=== PATIENT | female | born 1945 | race Caucasian/White ===

== ENCOUNTER 2020-01-08 09:34 | Observation (INO) | payer MEDICARE, SELFPAY ==
[2020-01-08] VITALS (18 sets, daily range): BP systolic 138–198; BP diastolic 71–104; PULSE 42–74; RESP 11–28; TEMP 35.8–36.6; O2SAT 97–100; BMI 39.3; BMI 40.6
--- NOTE | 2020-01-08 | ECHO_ITS ---
Patient Info Name: Hue Raygoza Age: 74 years : 1945 Gender: Female Ht: 68 in Wt: 258 lbs BSA: 2.42 m2 HR: 54 bpm BP: 148 / 71 mmHg Heart Rhythm: Sinus Rhythm Technical Quality: Poor Exam Date: 01/08/2020 2:24 PM Exam Location: [facility] Patient Status: Outpatient Admit Date: 01/08/2020 Staff Ordering Physician: Sam Duque MD Varnishing Unit Operator: Cira Miller RD Attending Provider: Caitlyn Vinson MD Referring Physician: Dunia LINDSEY; Exam Type: CA echo doppler w bubble study Study Info Complete two-dimensional, color flow and Doppler transthoracic echocardiogram is performed with contrast to opacify the left ventricle and to improve the deliniation of the left ventricle endocardial borders. Complete two-dimensional, color flow and Doppler transthoracic echocardiogram is performed with agitated saline. Contrast/Agitated Saline Contrast/Ag. Saline: Definity Amount: 3.00 ml Contrast/Ag. Saline: Agitated Saline Amount: --- ml Summary 1. Left ventricular chamber dimension is normal. 2. Left ventricular systolic function is normal, estimated at 60-65%. 3. There is moderately increased left ventricular wall thickness. 4. The left ventricular diastolic function is grade I diastolic dysfunction. 5. Left atrial chamber dimension is mildly enlarged. 6. There is mild tricuspid valve regurgitation. 7. There is mild mitral valve regurgitation. 8. The aortic root size at the sinus of Valsalva is mildly dilated. 9. Intact interatrial septum visualized by color flow and agitated saline imaging. Left Ventricle Left ventricular chamber dimension is normal. Left ventricular systolic function is normal, estimated at 60-65%. There is moderately increased left ventricular wall thickness. The left ventricular diastolic function is grade I diastolic dysfunction. Right Ventricle Right ventricular chamber dimension is normal. Right ventricular systolic function is normal. Left Atria Left atrial chamber dimension is mildly enlarged. Right Atria Right atrial chamber dimension is normal. Atrial Septum Intact interatrial septum visualized by color flow and agitated saline imaging. Aortic Valve The aortic valve is trileaflet. There is mild aortic valve sclerosis. There is no aortic valve stenosis. There is trace aortic valve regurgitation. Pulmonic Valve The pulmonic valve is normal. There is no pulmonic valve stenosis. There is trace pulmonic regurgitation. Mitral Valve The mitral valve has calcified annulus. There is no mitral valve stenosis. There is mild mitral valve regurgitation. Tricuspid Valve The tricuspid valve leaflets are normal. There is no significant tricuspid valve stenosis. There is mild tricuspid valve regurgitation. No pulmonary hypertension, estimated pulmonary arterial systolic pressure is 13 mmHg. Pericardium/Pleural The pericardium appears normal. There is no pericardial effusion. Inferior Vena Cava Normal inferior vena cava with >50% collapse upon inspiration consistent with normal right atrial pressure, 5 mmHg. Aorta The aortic root size at the sinus of Valsalva is mildly dilated. The prox ascending aorta size is normal. Left Ventricular Outflow Tract Name Value Normal
--- NOTE | ~2020-01-08 | US_ITS ---
EXAMINATION: US carotid duplex BI DATE: 01/08/2020 15:52 INDICATION: Headache. Numbness and tingling in the face and hands. Dizziness. TECHNIQUE: Grayscale, color Doppler, and pulsed Doppler images of the cervical carotid arteries were obtained. The degree of vessel stenosis is placed in one of the following categories: normal, <50%, 5 0-69%, >=70% but less than near-occlusion, near-occlusion, or total occlusion. Note that percent sten osis relative to normal distal artery lumen diameter is indirectly measured from velocity measurement s as described by Saeid, et al. Radiology 2003; 229:340-346. Notes: Normal: Peak systolic velocity <125 centimeters/sec and no plaque <50%. Peak systolic velocity <125 ( EDV <40; ICA/CCA PSV ratio <2.0; used these factors only a tandem lesions or low cardiac output or co ntralateral disease) 50-69 %: PSV 125-230 (EDV 40-100; ratio 2-4) >= 70% but less than near occlusion: PSV greater than 230 (EDV > 100; ratio> 4.0) Near Occlusion: PSV that is variable; markedly narrowed lumen Occlusion: Absent flow on color/spectral Doppler and no lumen on fagan scale. COMPARISON: CT dated 01/08/2020. FINDINGS: RIGHT: The right common carotid artery (CCA) peak systolic velocity (PSV) is 69 cm/s. The right internal car otid artery (ICA) PSV is 53 cm/s. The right ICA end-diastolic velocity (EDV) is 16 cm/s. The right IC A/CCA PSV ratio is 0.8. The external carotid artery (ECA) PSV is 65 cm/s. There is antegrade flow in the right vertebral artery. LEFT: The left CCA PSV is 63 cm/s. The left ICA PSV is 46 cm/s. The left ICA EDV is 12 cm/s. The left ICA/C CA PSV ratio is 0.7. The ECA PSV is 51 cm/s. There is antegrade flow in the left vertebral artery. IMPRESSION: 1. Less than 50% stenosis in the right internal carotid artery by sonographic criteria. 2. Less than 50% stenosis in the left internal carotid artery by sonographic criteria. Reviewed, dictated and finalized at location A. IMPRESSION: 1. Less than 50% stenosis in the right internal carotid artery by sonographic kaylene frost. 2. Less than 50% stenosis in the left internal carotid artery by sonographic mis salcedo.
--- NOTE | ~2020-01-08 | CT_ITS ---
EXAMINATION: CT brain wo con EXAM DATE: 01/08/2020 10:12 INDICATION: Headache, paresthesia in the upper extremities. TECHNIQUE: Spiral CT of the head was performed without contrast. Axial, coronal and sagittal images were reviewed. The dose-length product (DLP) for this examination was 605.33 mGy-cm. The exposure w as tailored according to patient size, and iterative reconstruction (ASIR) was used as additional dos e reduction technique. There is no prior study for comparison. FINDINGS: There is no acute intraparenchymal hemorrhage. No evidence of intraparenchymal brain mass lesion. No evidence of acute infarction. Please note that initial head CT has limited sensitivity f or small or acute infarctions. There is hyperostosis frontalis. There is mild periventricular and s ubcortical hypodensity, nonspecific but probably related to small vessel ischemic disease. There is mild prominence of the sulci and ventricles related to cerebral atrophy. There is intracranial car otid arteriosclerosis. There are no extra-axial collections. There is no mass effect or midline mallika ft. The orbits are unremarkable. Soft tissue is unremarkable. The visualized sinuses and mastoid a ir cells are well aerated. IMPRESSION: 1. No acute intracranial findings. 2. Chronic age related findings. Reviewed, dictated and finalized at location A.
--- NOTE | ~2020-01-08 | MR_ITS ---
EXAMINATION: MR brain/brain stem wo/w con EXAM DATE: 01/09/2020 12:01 INDICATION: Left-sided paresthesia, headache. TECHNIQUE: Magnetic resonance imaging (MRI) of the brain/brain stem obtained without contrast. Sagit emir T1, axial diffusion, gradient echo (T2*), T1, T2, FLAIR sequences obtained. Patient was then inj ected with a cc intravenous Multihance contrast. Axial and coronal postcontrast T1 weighted sequences obtained. Correlation is made to head CT from yesterday. FINDINGS: There are no areas of restricted diffusion to suggest acute infarction. There is no acute hemorrhage seen on the T2*, a hemosiderin sensitive sequence. No intraparenchymal brain mass. The ve ntricles are normal in size. There are no extra-axial collections. Flow voids are seen in the cereb ral arteries on the T2-weighted sequences consistent with their expected patency. The orbits are unr emarkable. Soft tissue is unremarkable. There are no areas of abnormal enhancement on the postcont rast images. IMPRESSION: 1. Normal brain MRI examination. Reviewed, dictated and finalized at location A.
--- NOTE | 2020-01-08 09:42 | ECG_ITS ---
Measurements Intervals [place] Rate: 49 P: 40 MT: 230 QRS: -25 QRSD: 112 T: 13 QT: 446 QTc: 405 Interpretive Statements SINUS BRADYCARDIA WITH FIRST DEGREE AV BLOCK INTRAVENTRICULAR CONDUCTION DELAY LOW QRS VOLTAGE IN PRECORDIAL LEADS POOR R WAVE PROGRESSION, ANTERIOR LEADS BORDERLINE ST-T WAVE ABNORMALITY- DIFFUSE LEADS ABNORMAL ECG Electronically Signed On 01-08-2020 11:26:07 CDT by Jordan Carter D.O.
--- NOTE | 2020-01-08 09:44 | ED.NEUROSD ---
HPI - Neuro Symptoms/Deficit General Chief Complaint: Neuro Symptoms/Deficit Stated Complaint: stroke like symptoms Time Seen by Provider: 01/08/20 09:34 History of Present Illness HPI Narrative: 74 yo female w/ h/o HTN presents from home for numbness and tingling. She reports that around 0200 this morning she awoke with tingling and pain to the bilateral arms and a severe SIBLEY. The headache and the sensation in the right arm resolved. SHe continued having numbness and tingling in the left arm and left side of the face. She believes that this is improving. Related Data Home Medications Medication Instructions Recorded Confirmed amlodipine 01/08/20 aspirin 81 mg PO DAILY 01/08/20 01/08/20 atenolol 01/08/20 ezetimibe mg 01/08/20 triamterene-hydrochlorothiazid tablet 01/08/20 Allergies Allergy/AdvReac Type Severity Reaction Status Date / Time latex Allergy Severe Swelling Verified 01/08/20 09:53 ATORVASTATIN CALCIUM Allergy Unknown Other Uncoded 01/08/20 09:53 Review of Systems Review of Systems: All systems reviewed & are unremarkable except as noted in HPI and below Constitutional: Constitutional: Denies fever(s) and Denies weakness ENT: Reports dizziness Cardiovascular: Cardiovascular: Denies chest pain Respiratory: Respiratory: Denies dyspnea Musculoskeletal: Musculoskeletal: Denies back pain Neurologic: Reports dizziness, Denies syncope, Reports headache(s), Reports numbness and Denies weakness FOR[facility]LY [facility] Past Medical History Medical History CAD (coronary artery disease) medically treated . Myocardial infarction 1986. No intervention was performed. History of poliomyelitis she stated she had a mild case as a child and uses a walker. HTN (hypertension), malignant Hyperlipidemia Surgical History Surgical History H/O oral surgery History of cardiac catheterization 1986 after myocardial infarction. No angioplasty or stent as the vessel was reported as hard to read. History of extraction of renal calculus History of partial hysterectomy History of removal of pigmented skin lesion Family History Family History Mother Thyroid disease when she was 97. Father Valvular heart disease Sibling Valvular heart disease 2 brothers Social History Social History Social History: the patient resides with her in [place]. He is the durable power attorney recruiter for healthcare. She desires to be a full code. 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 She never smoked used marijuana, tobacco or drug abuse. She has 3 children. Smoking status: Never smoker Second hand tobacco smoke exposure: No Alcohol intake: never Substance use: never Living arrangements: with family Occupation/Education: retired Gender identity (if verbalized by the patient): Female Sexual Orientation (if Verbalized by the Patient): Straight or Heterosexual Spiritual care concerns: No Exam Const: General: healthy appearing, no acute distress and alert Orientation/consciousness: patient oriented x3 HENMT: Mouth: Yes dry mucous membranes Eyes: Conjunctivae: conjunctivae normal Pupils: Equal, round and reactive pupils present EOM: EOMs intact bilaterally Neck: Neck: normal visual inspection and no lymphadenopathy Chest: Chest palpation & inspection: no tenderness Resp: Effort & Inspection: normal respiratory effort Auscultation: clear to auscultation bilaterally, no rales, no rhonchi and no wheezes Cardio: Jugular venous distension: no JVD Rate: bradycardic Rhythm: regular rhythm Heart sounds: no murmurs GI: Inspection: non-distended GI Palp: Yes Soft to palpation and No Tenderness to palp
[2020-01-08] MEDS: SODIUM CHLORIDE 0.9% IV 1,000 ML 999 ML IV CONT (10:00)
[2020-01-08 10:50] LABS: Basophils Percent Auto 1.1 % (0.2-1.2); Eosinophils Percent Auto 1.1 % (0-4.4); Hematocrit 42.3 % (37.0-47.0); Hemoglobin 13.5 g/dL (12.0-15.0); Immature Granulocyte Absolute 0.02 K/mm3 (0.00-0.031); Immature Granulocyte Percent A 0.6 % (0-0.5); Lymphocytes Absolute Auto 1.01 K/mm3 (0.9-3.2); Lymphocytes Percent Auto 28.9 % (18.3-44.2); Mean Corpuscular HGB Conc 31.9 g/dl (32-36); Mean Corpuscular Hemoglobin 27.8 pg (26-34); Mean Corpuscular Volume 87.2 fl (80-100); Mean Platelet Volume 12.6 fl (7.4-10.4); Monocytes Absolute Auto 0.3 K/mm3 (0.1-0.6); Monocytes Percent Auto 8.3 % (2.6-8.5); Neutrophils Absolute Auto 2.1 K/mm3 (1.3-6.7); Platelet Count Result 154 k/mm3 (150-375); Red Blood Count 4.85 M/mm3 (4.2-5.4); Red Cell Distribution Width 14.2 % (11.5-14.5); White Blood Count 3.5 K/mm3 (4.5-10.0)
[2020-01-08 10:59] LABS: Prothrombin Time 12.8 Seconds (11.1-14.7)
[2020-01-08 11:00] LABS: Alanine Aminotransferase 23 U/L (4-35); Albumin Level 3.9 g/dL (3.5-5.1); Alkaline Phosphatase 63 U/L (38-126); Anion Gap 8.9 mmol/L (7-16); Aspartate Amino Transferase 26 U/L (14-36); Blood Urea Nitrogen 16 mg/dL (7-17); Calcium 8.9 mg/dL (8.4-10.2); Carbon Dioxide 27 mmol/L (22-30); Chloride 108 mmol/L (98-107); Estimated CRCL calculation 91 ml/min; Estimated Glomerular Filt Rate > 60; Glucose 105 mg/dL (65-105); Partial Thromboplastin Time 29.6 SECONDS (22.3-36.8); Potassium 3.9 mmol/L (3.4-5.0); Sodium 140 mmol/L (137-145)
--- NOTE | 2020-01-08 11:28 | PC.NURSE ---
Note pt's heart rate in 40-50's range, appears sinus bradycardia. Pt reports she normally has a low heart rate. c/o dizziness when heartrate lowers. Commode brought to room for clean catch urine collection. Pt up around room without difficulty.
[2020-01-08] MEDS: hydrALAZINE HCL 20 MG/ML VIAL IV PUSH (11:35)
[2020-01-08 11:58] LABS: Add Urine Microscopic? NO; Appearance Urine Clear (Clear); Bilirubin Urine Negative (Negative); Blood Urine Negative (Negative); Color Urine Colorless (Yellow); Glucose Urine UA Negative (Negative); Ketones Urine Negative (Negative); Leukocyte Esterase Ur Negative LEU/UL (Negative); Nitrate Urine Negative (Negative); Protein Urine Negative (Negative); Urobilinogen Urine Negative mg/dL (<2.0)
--- NOTE | 2020-01-08 12:37 | PC.NURSE ---
Pt reports that when getting up to the commode earlier she became dizzy, and her tingling worsened in her arms and face. VSS taken, pt assisted back to bed. Dr. Arias made aware.
--- NOTE | 2020-01-08 13:20 | PC.NURSE ---
SBAR tubed and faxed to [address] [place] [address].
[2020-01-08] MEDS: LACTATED RINGERS 1,000 ML 125 ML IV CONT (13:25)
--- NOTE | 2020-01-08 14:49 | PM.IMHP ---
H&P: HPI History of Present Illness Date/Time: 01/08/20 14:49 Chief complaint: Symptomatic Braycardia Narrative: Hue Raygoza is a 74 year old female Who has a history of have being coronary artery disease but was not able to have a stent placed due to the position of the blockage. The patient does not have any chest pain today but was complaining of some numbness and tingling. She stated that at this started around 2:00 a.m. this morning. She has fair headache and she had some numbness and tingling to her face and her hands. Resolved somewhat when she got here but then it came back and was radiating down her arm and she also felt some dizziness. No fever chills but had some complaint of nausea. The patient stated that she has mental fogginess due to the headache. She typically takes an aspirin and that helps with the headache. She used to take Excedrin but that does not seem to help her. She walks with a walker since she has had a history of having a mild case of polio as a child. Her head CT was read as no acute intracranial findings. Chronic age-related findings. Patient stated she has been on her blood pressure medication for many years but now her heart rate is in the 30s and 40s. I did request a cardiology be consulted. The patient does not see a celery packer here but rather [address] [place] [address] De Santiago. She stated she is intolerant of a statin it makes her too weak. She had numbness and tingling to left side her face and left arm that resolved then it went down the right arm. She is currently receiving an echo. Patient's blood pressure was last listed as 161/104. None of her home medications were given because of patient's low heart rate. His felt the patient could have symptomatic bradycardia versus TIA versus a CVA. the patient was given Ativan, hydralazine and IV fluids in the emergency room. I have spent at least 1 hour the patient date of service is 01/08/2020 Review of Systems Review of Systems: All systems reviewed & are unremarkable except as noted in HPI and below Constitutional: Constitutional: Reports as per HPI and Reports no additional constitutional complaints Eyes: Eyes: Reports as per HPI and Reports no additional eye complaints ENT: Reports system reviewed and no additional complaints, except as documented and Reports Normal hearing present Cardiovascular: Cardiovascular: Reports no additional cardiovascular complaints Respiratory: Respiratory: Reports no additional respiratory complaints and Reports no additional respiratory complaints Gastrointestinal: Gastrointestinal: Reports as per HPI and Reports no additional gastrointestinal complaints Musculoskeletal: Musculoskeletal: Reports no additional musculoskeletal complaints Integumentary/Breasts: Skin/Breast: Reports system reviewed and no additional complaints, except as docu and Reports as per HPI Neurologic: Reports system reviewed and no additional complaints, except as documented, Reports as per HPI and Reports Normal hearing present Psychiatric: Psychiatric: Reports no additional psychiatric complaints and Reports as per HPI Endocrine: Endocrine: Reports no additional endocrine complaints Hematologic/Lymphatic: Hematologic/Lymphatic: Reports no additional hematologic/lymphatic complaints Allergic/Immunologic: Allergic/Immunologic: Reports no additional allergic/immunologic complaints PMFSH Past Medical History Medical History (Updated 01/08/20 @ 15:05 by Sammie Boswell NP) CAD (coronary artery disease) medically treated . Myocardial infarction 1986. No intervention was performed. History of poliomyelitis she stated she had a mild case as a child and uses a walker. HTN (hypertension), malignant Hyperlipidemia Surgical History Surgical History (Updated 01/08/20 @ 14:58 by Sammie Boswell NP) H/O oral surgery History of cardiac catheterization 1986 after myocardial infarction. No angioplasty or stent as the vessel was reporte
--- NOTE | 2020-01-08 16:02 | ADMGEN ---
This patient, Hue Raygoza, was admitted to Medical Room 252-01. Patient/family oriented to hospital policies and general routines including ID bracelet, bed and alarms, visiting hours, pain management, procedures, bathroom and other care routines, personal items, smoking policy, room service/diet, and visiting hours. Valuables list has been completed. Instructed to call for assistance as needed call light in reach. Information on how to activate the Rapid Response Team has been discussed. Patient/Family are encouraged to report perceived risks to care and to ask questions if they do not understand what they are told or what they should do.
[2020-01-08] MEDS: KETOROLAC 15 MG/ML VIAL (*BKC) IV PUSH (17:18)
[2020-01-09] VITALS (10 sets, daily range): BP systolic 127–141; BP diastolic 54–85; PULSE 48–100; RESP 18–20; TEMP 35.9–36.1; O2SAT 98
[2020-01-09] MEDS: EZETIMIBE 10 MG TABLET BY MOUTH (08:40)
[2020-01-09] MEDS: ASPIRIN 81 MG CHEWABLE TABLET PO (08:40)
--- NOTE | 2020-01-09 09:25 | PM.CNCAR ---
Assessment and Plan Assessment and plan (1) CAD (coronary artery disease): Code(s): I25.10 - Atherosclerotic heart disease of [place] coronary artery without angina pectoris Status: Acute Assessment and Plan: Continue aspirin, Zetia. (2) Symptomatic bradycardia: Code(s): R00.1 - Bradycardia, unspecified Status: Acute Assessment and Plan: patient does not have symptomatic bradycardia. I talked to her extensively and she states that she often has heart rates in the 50s and whenever she was in rehab down stairs, her heart rate was frequently in the 40s. Her current symptomatology has nothing to do with her mild bradycardia. I a.m. however going to stop her atenolol completely. Will monitor heart rate and likely start some carvedilol if needed rather than atenolol. I will check a TSH and a free T4 level. 2D echocardiogram with Doppler as well as bubble study will also be ordered. (3) HTN (hypertension), malignant: Code(s): I10 - Essential (primary) hypertension Status: Chronic Assessment and Plan: heart transplant/ hydrochlorothiazide should be restarted and I will start her back on her amlodipine but increase the dose to 10 mg daily. First dose now. (4) Numbness and tingling in left arm: Code(s): R20.0 - Anesthesia of skin; R20.2 - Paresthesia of skin Status: Acute Assessment and Plan: Workup per Neurology. . Will check a troponin x1 (5) Headache: Code(s): R51 - Headache Status: Acute Assessment and Plan: Neurology to see. Possibly related to hypertension (6) Hyperlipidemia: Code(s): E78.5 - Hyperlipidemia, unspecified Status: Chronic Assessment and Plan: intolerant to statins. On Zetia for now. will check a lipid panel History of Present Illness History of Present Illness Consult date/time: 01/09/20 09:25 Requesting physician: Saeid Arias MD Consult reason: hypertension and Other (Bradycardia) Reason For Visit: Symptomatic Braycardia Narrative: date of service 01/09/2020 Reason for consultation: Bradycardia, hypertension History patient is a 74-year-old female who does have a history of coronary disease and follows with Dr. De Santiago. She has a history of CAD dating back to the 1980s. She came to the hospital because headache, tingling in her arms, numbness in her arms and weakness. Patient was in her usual state health but woke up at 2:00 a.m. on the morning of January 08, 2020 with a headache and a feeling as if there were electrical impulses all over her. She was very sweaty at the time. She then developed some numbness weakness and tingling in both of her arms. Blood pressure was elevated upon arrival to the emergency room. It was also noted that she has a slow heartbeat and so Cardiology consultation was requested. Patient denies any chest pain. She denies any syncope, presyncope, paroxysmal nocturnal dyspnea, orthopnea, edema or palpitations. She did have some heavy breathing at the time of her other symptoms. At this point she still is having a headache and some numbness /tingling involving her left arm. Her atenolol amlodipine and of triamterene/hydrochlorothiazide were held. EKG shows no acute abnormalities. Review of Systems Review of Systems: All systems reviewed & are unremarkable except as noted in HPI and below Constitutional: Constitutional: Reports weakness Eyes: Eyes: Denies blurry vision ENT: Reports Normal hearing present Cardiovascular: Cardiovascular: Denies chest pain Respiratory: Respiratory: Denies cough Gastrointestinal: Gastrointestinal: Denies abdominal pain Genitourinary: Genitourinary: Denies hematuria and Denies flank pain Musculoskeletal: Musculoskeletal: Denies back pain and Denies neck pain Integumentary/Breasts: Skin/Breast: Denies dry skin Neurologic: Reports headache(s) Psychiatric: Psychiatric: Denies anxiety and Denies confusion
[2020-01-09 10:25] LABS: Cholesterol 158 mg/dL (0-200); HDL Direct 59 mg/dL; Triglycerides 252 mg/dL (<150)
[2020-01-09 10:36] LABS: LDL Cholesterol Direct 37 mg/dL
[2020-01-09] MEDS: TRIAMTERENE 37.5 MG/HCTZ 25 MG (MAXZIDE) TABLET 1 TAB PO (10:47)
[2020-01-09] MEDS: amLODIPine BESYLATE 5 MG TABLET 10 MG PO (10:48)
[2020-01-09 11:15] LABS: T4 Thyroxine 6.71 ug/dL (5.53-11.0)
--- NOTE | 2020-01-09 13:01 | PM.IMPN ---
Progress Note: A&P Assessment and Plan (1) Numbness and tingling in left arm: Code(s): R20.0 - Anesthesia of skin; R20.2 - Paresthesia of skin Status: Acute Assessment and Plan: Patient describes mild intermittent parasthesia to left arm chronically over last 5 years after an injury and surgery to left arm. She awoke 2AM 8/ with worse numbness and tingling to both arms, reporting they felt heavy and she had difficulty lifting them, along with numbness/tingling to face (worse on left) and tongue. CT brain is normal. Carotid dopplers normal. MRI brain is normal. Etiology is unclear at this time. May have been worsened with elevated blood pressures. Appreciate neurology recommendations. (2) Headache: Qualifiers: Headache type: unspecified Headache chronicity pattern: unspecified pattern Intractability: not intractable Qualified Code(s): R51 - Headache Code(s): R51 - Headache Status: Acute Assessment and Plan: She reports Tylenol does not help. Toradol is available if needed. She reports headache is improved today. (3) HTN (hypertension), malignant: Code(s): I10 - Essential (primary) hypertension Status: Chronic Assessment and Plan: BPs elevated to 198/79 yesterday and are improved today. Cardiology was consulted due to bradycardia - appreciate Dr Duque recommendations today. He has resumed her home medications, increased her norvasc, resumed her Maxzide, stopped atenolol. (4) Bradycardia: Code(s): R00.1 - Bradycardia, unspecified Status: Chronic Assessment and Plan: She described this is chronic for her. Tele review shows some bradycardia overnight and this morning as low as 38bpm, at time of my exam she is sinus rhythm HR 64. Appreciate cardiology's recommendations. Agree I don't feel this is causing her paresthesias. (5) Hyperlipidemia: Qualifiers: Hyperlipidemia type: unspecified Qualified Code(s): E78.5 - Hyperlipidemia, unspecified Code(s): E78.5 - Hyperlipidemia, unspecified Status: Chronic Assessment and Plan: Patient is intolerant of statins and is on Zetia. Subjective Date/time seen: 01/09/20 1200 Interval history: Ms. Raygoza is a 74yo F admitted for evaluation of parasthesia. She describes numbness and tingling to arms (worse in left today), face and tongue. She has a headache. She describes 5 years ago had an injury with dislocated left shoulder and a left arm fracture that required surgery. She reports she has had mild intermittent left arm numbness and tingling since that time, but she awoke 2AM with sudden worsening of this N/T when at that time included her face, tongue, right and left arms. Overall her numbness and tingling has improved, still present in her left arm and face. No issues with speech or swallowing today. No issues with lower extremities. No nausea or vomiting. No chest pain, syncope, palpitations, or shortness of breath. Review of Systems Review of Systems: Narrative: Twelve systems were reviewed with pertinent positives and negatives as per HPI. Exam Narrative: Exam Narrative: General: Female resting comfortably in semi-schrader's position in no acute distress. HEENT: Normocephalic, EOMI, pupils constricted but round and reactive to light SHERON, tongue is midline. Cardiovascular: Rate and rhythm are regular. Respiratory: Lungs clear to auscultation all berry. Non-labored breathing. Abdomen: Soft, non-tender, non-distended, bowel sounds present. Extremities: Peripheral pulses intact. No edema. Neuro: Alert and oriented. No facial asymmetry appreciated. Precinct Captain strength, upper and lower extremity strength are equal bilaterally. Cranial nerves II-XII intact as tested. Speech is clear. Objective Data Vital Signs Vital Signs:
--- NOTE | 2020-01-09 16:33 | CONS_ITS ---
DATE OF CONSULTATION: 01/08/2020 HISTORY OF PRESENT ILLNESS: A 74-year-old has been admitted to [facility] for the complaint of symptomatic bradycardia. As per the information available, she has ongoing history of: 1. Coronary artery disease for which she has not had stent placed due to the position of the blockage. 2. Hypertension. 3. Hyperlipidemia. 4. History of poliomyelitis as a mild case, as a child for which she has been using the walker. She was not complaining of chest pain, but was complaining of numbness and tingling sensation around 02:00 a.m. in the morning along with the headache and numbness, and tingling to her face, which was gone by the time she came to the ER, but it came back with numbness radiating down to her arm and also she felt dizzy. She usually takes aspirin that helps her headache, but this time it did not. She has been taking her antihypertensive medication, but her heart rate has been running in 30s and 40s for which the analog device designer had been consulted. As per the review of Dr. Duque's notes, her atenolol, amlodipine and triamterene-hydrochlorothiazide were held. EKG was without any abnormalities and her cardiac exam was with bradycardia, but regular rhythm. Further cardiac workup is accordingly. PHYSICAL EXAMINATION: GENERAL: At this stage, on examination, she is awake, alert, in no obvious acute distress, oriented x3. Her speech not dysphasic, not dysarthric, not dysphonic. HEENT: Head normocephalic with no cranial bruit. Ear, nose, throat examination normal. NECK: Supple with no cervical bruit. No thyromegaly. No lymphadenopathy. HEART: Regular with no murmur. LUNGS: Clear with no crepitation. ABDOMEN: Soft. NEUROLOGICAL: She is awake, alert, oriented x3. Her speech not dysphasic, not dysarthric. Pupils round, regular. Mckee of vision full. Extraocular movements full. Face symmetrical. Tongue midline. Motor examination revealed her to have fairly normal strength. Reflexes sluggish. Plantar downgoing. No evidence of gross cerebellar deficit. Plan is considering the possibility of the TIA. Further workup is necessary. She is going to have the MRI and Doppler study, which has already been done, reveals only less than 50% stenosis bilaterally. Cardiology consultation has been obtained. We will wait for the MRI report. In the meantime, She is taking aspirin 81 mg daily along with the amlodipine 10 mg daily with triamterene-hydrochlorothiazide 25 one tablet daily. MANI HERNANDEZ M.D. BRICK UNLOADER TENDER BRICK UNLOADER TENDER D I MT: [place]
[2020-01-10] VITALS: PULSE 48
[2020-01-10 04:00] VITALS: PULSE 42
[2020-01-10 05:32] LABS: Basophils Percent Auto 0.7 % (0.2-1.2); Eosinophils Absolute Auto 0.1 K/mm3 (0-0.3); Eosinophils Percent Auto 2.4 % (0-4.4); Hematocrit 41.2 % (37.0-47.0); Immature Granulocyte Absolute 0.01 K/mm3 (0.00-0.031); Immature Granulocyte Percent A 0.2 % (0-0.5); Lymphocytes Absolute Auto 1.32 K/mm3 (0.9-3.2); Lymphocytes Percent Auto 32.2 % (18.3-44.2); Mean Corpuscular HGB Conc 31.6 g/dl (32-36); Mean Corpuscular Hemoglobin 27.5 pg (26-34); Mean Corpuscular Volume 87.1 fl (80-100); Mean Platelet Volume 12.4 fl (7.4-10.4); Monocytes Absolute Auto 0.5 K/mm3 (0.1-0.6); Neutrophils Absolute Auto 2.2 K/mm3 (1.3-6.7); Neutrophils Percent Auto 53.5 % (45.5-73.1); Platelet Count Result 170 k/mm3 (150-375); Red Blood Count 4.73 M/mm3 (4.2-5.4); Red Cell Distribution Width 14.3 % (11.5-14.5); White Blood Count 4.1 K/mm3 (4.5-10.0)
[2020-01-10 05:48] LABS: Blood Urea Nitrogen 11 mg/dL (7-17); Calcium 8.7 mg/dL (8.4-10.2); Carbon Dioxide 24 mmol/L (22-30); Chloride 108 mmol/L (98-107); Estimated CRCL calculation 81 ml/min; Estimated Glomerular Filt Rate > 60; Glucose 96 mg/dL (65-105); Magnesium 2.1 mg/dL (1.6-2.3); Sodium 137 mmol/L (137-145)
[2020-01-10 06:00] VITALS: BP 149/75; PULSE 57; RESP 18; TEMP 36.4; O2SAT 99
[2020-01-10 06:57] LABS: Folic Acid > 20.0 ng/mL (2.76->20)
[2020-01-10 07:16] LABS: Vitamin D 25 Hydroxy 32.3 ng/mL
[2020-01-10 08:00] VITALS: PULSE 61
[2020-01-10] MEDS: EZETIMIBE 10 MG TABLET BY MOUTH (08:10)
[2020-01-10] MEDS: TRIAMTERENE 37.5 MG/HCTZ 25 MG (MAXZIDE) TABLET 1 TAB PO (08:10)
[2020-01-10] MEDS: amLODIPine BESYLATE 5 MG TABLET 10 MG PO (08:11)
[2020-01-10] MEDS: ASPIRIN 81 MG CHEWABLE TABLET PO (08:11)
--- NOTE | 2020-01-10 08:56 | PM.PNCARD ---
Progress Note: A&P Assessment and Plan (1) Symptomatic bradycardia: Code(s): R00.1 - Bradycardia, unspecified Status: Inactive Assessment and Plan: She does not have symptomatic bradycardia. Her current symptomatology has nothing to do with her mild bradycardia. Atenolol stopped. Heart rates generally in the 50's with appropriate excursions into the 70s with activity. No pauses. Rare PVC TSH and a free T4 within normal limits 2D echocardiogram with Doppler01/08/2020: Left ventricular chamber dimension is normal. Left ventricular systolic function is normal, estimated at 60-65%. There is moderately increased left ventricular wall thickness. The left ventricular diastolic function is grade I diastolic dysfunction. Left atrial chamber dimension is mildly enlarged. There is mild tricuspid valve regurgitation. There is mild mitral valve regurgitation. The aortic root size at the sinus of Valsalva is mildly dilated. Intact interatrial septum visualized by color flow and agitated saline imaging. (2) HTN (hypertension), malignant: Code(s): I10 - Essential (primary) hypertension Status: Chronic Assessment and Plan: Triamterene/ hydrochlorothiazide restarted. Amlodipine 10 mg daily. BP after meds 01/09/2020: 132/79 [id number]. BP this morning prior to meds 149/75 No further adjustments needed at this time (3) CAD (coronary artery disease): Qualifiers: Coronary Disease-Associated Artery/Lesion type: [place] artery [place] vs. transplanted heart: [place] heart Associated angina: without angina Qualified Code(s): I25.10 - Atherosclerotic heart disease of [place] coronary artery without angina pectoris Code(s): I25.10 - Atherosclerotic heart disease of [place] coronary artery without angina pectoris Status: Acute Assessment and Plan: Continue aspirin, Zetia. (4) Numbness and tingling in left arm: Code(s): R20.0 - Anesthesia of skin; R20.2 - Paresthesia of skin Status: Acute Assessment and Plan: Workup per Neurology. (5) Headache: Qualifiers: Headache type: unspecified Headache chronicity pattern: unspecified pattern Intractability: not intractable Qualified Code(s): R51 - Headache Code(s): R51 - Headache Status: Acute Assessment and Plan: Work up per Neurology. Possibly related to hypertension (6) Hyperlipidemia: Qualifiers: Hyperlipidemia type: unspecified Qualified Code(s): E78.5 - Hyperlipidemia, unspecified Code(s): E78.5 - Hyperlipidemia, unspecified Status: Chronic Assessment and Plan: Intolerant to statins. On Zetia for now. Lipid panel as below Additional Plan No further cardiac recommendations She has an appointment coming up on 01/30/[address] Foley. She will continue to follow with Dr Brett De Santiago, her established pharmacy analyst We will sign off. Please do not hesitate to call if we can be of further assistance Plan discussed with Dr Sahu [phone] 01/10/2020 Time Spent With Patient Time with patient: less than 15 minutes Subjective Date/time seen: 01/10/20 08:56 Interval history: Follow up for : bradycardia, parasthesia, headache, hypertension Date of service: 01/10/2020 Subjective:Denies chest discomfort, shortness of breath, dizziness or palpitations. Still has tingling left face/neck and tongue. Some numbness as well Review of Systems Constitutional: Constitutional: Denies fatigue, Denies headache(s) and Denies weakness Eyes: Eyes: Denies blurry vision ENT: Reports Normal hearing present, Denies headache(s), Denies lip swelling and Denies neck pain Cardiovascular: Cardiovascular: Denies chest pain and Denies dyspnea Respiratory: Respiratory: Denies cough and Denies dyspnea Gastrointes
[2020-01-10 10:00] VITALS: BP 133/73; PULSE 63; RESP 19; TEMP 36.3; O2SAT 97
[2020-01-10 12:00] VITALS: PULSE 89
--- NOTE | 2020-01-10 15:24 | PM.DS ---
DS: Admitting Diagnosis Admitting Diagnosis Admitting Diagnosis: Bradycardia, unspecified DS: Discharge Diagnosis Discharge Diagnosis (1) Numbness and tingling in left arm: Code(s): R20.0 - Anesthesia of skin; R20.2 - Paresthesia of skin Status: Acute Assessment and Plan: Date of Service 01/10/20 Ms. Raygoza is a pleasant 74yo F with history of hypertension, hyperlipidemia, and bradycardia who presented to the ED for evaluation of multiple symptoms. She described that she woke up at 2AM morning of arrival feeling numbness and tingling to SHERON upper arms, face, tongue with headache. Her arms felt heavy. She described that around 5 years ago, she had gotten in an accident and suffered left shoulder dislocation and left arm fracture for which she underwent surgery, and at baseline she does have some intermittent numbness and tingling to the left arm, but this was worse than normal. BP up to 198/79 on arrival and she was noted to have sinus bradycardia. CT brain and MRI brain were unremarkable. Carotid dopplers were normal. Echocardiogram detailed below. Her symptoms were improved each day while admitted. She was seen by cardiology for the bradycardia - norvasc increased to 10mg daily, atenolol was discontinued, Maxzide was continued and she will follow up with her established bilingual school psychologist, Dr De Santiago in [facility]. Neurology was consulted and she was seen by Dr Mo. Day of discharge, her right arm paresthesia was gone, left arm paresthesia was back at baseline, and facial/tongue paresthesia was improved but still present, worse on left (not painful). No issues with speech or swallowing. Etiology is not entirely clear at this time but it is possible that the elevated blood pressures exacerbated these symptoms and/or that she may have some type of facial nerve pathology on the left. She was hemodynamically stable for discharge 01/10/20 with instructions to follow up with PCP (establishing care as new patient of Dr Escalera in 2 weeks) and to follow up with neurology, return to ED if worsened symptoms. (2) Headache: Qualifiers: Headache type: unspecified Headache chronicity pattern: unspecified pattern Intractability: not intractable Qualified Code(s): R51 - Headache Code(s): R51 - Headache Status: Resolved Assessment and Plan: Resolved prior to discharge. (3) HTN (hypertension), malignant: Code(s): I10 - Essential (primary) hypertension Status: Chronic Assessment and Plan: BPs elevated to 198/79 on arrival and improved prior to discharge. Increased home norvasc to 10mg daily, stopped atenolol due to bradycardia, maintained current dose of Maxzide. (4) Bradycardia: Code(s): R00.1 - Bradycardia, unspecified Status: Chronic Assessment and Plan: She described this is chronic for her. Tele review shows some bradycardia overnight in low 40s, at time of my exam she is sinus rhythm HR 74. Appreciate cardiology's recommendations. Agree I don't feel this is the cause of her new symptoms. (5) Hyperlipidemia: Qualifiers: Hyperlipidemia type: unspecified Qualified Code(s): E78.5 - Hyperlipidemia, unspecified Code(s): E78.5 - Hyperlipidemia, unspecified Status: Chronic Assessment and Plan: Patient is intolerant of statins and is on Zetia. DS: Summary Time Spent with Patient Time attestation: Total time spent providing and/or coordinating discharge services: 35 minutes Exam Narrative: Exam Narrative: General: Female resting comfortably in semi-schrader's position in no acute distress. HEENT: Normocephalic, EOMI, pupils constricted but round and reactive to light SHERON, tongue is midline. Cardiovascular: Rate and rhythm are regular. Respiratory: Lungs clear to auscultation all berry. Non-labored
== END 2020-01-10 13:44 | disposition home or self-care (01) ==
LOC: ANHED 13:01 → ANH2MED 13:38
PROVIDERS: Internal Medicine Cardiovascular Disease; Physician Assistant; Admitting Provider Family Medicine; Emergency Provider Emergency Medicine; PCP Internal Medicine; Visit Provider Internal Medicine
DX: R00.1 Bradycardia, unspecified (principal); R20.0 Anesthesia of skin; R20.2 Paresthesia of skin; I25.2 Old myocardial infarction; I10 Essential (primary) hypertension; I25.10 Atherosclerotic heart disease of native coronary artery without angina pectoris; E78.5 Hyperlipidemia, unspecified; Z86.12 Personal history of poliomyelitis; Z79.899 Other long term (current) drug therapy
CPT/HCPCS: 36415; 70450; 70553; 80048; 80053; 80061; 81003; 82306; 82607; 82746; 83735; 84436; 84443; 85025; 85610; 85730; 93005; 93306; 93880; 96361; 96374; 96375; 99285; A9270; A9577; G0378; J0360; J1885; J2060; J7030; J7120; Q9957

== ENCOUNTER 2020-02-29 12:31 | Outpatient (CLI) | payer MEDICARE, SELFPAY ==
--- NOTE | ~2020-02-29 | MR_ITS ---
EXAMINATION: MR cervical spine wo con EXAM DATE: 02/29/2020 14:08 INDICATION: Paresthesia of skin. TECHNIQUE: Multi-sequential, multiplanar MR images of the cervical spine were obtained without contra st. Axial T2, axial T2 MERGE sequence. Sagittal T1, T2, T2 fat saturation images also obtained. Th ere is no prior study for comparison. FINDINGS: There is moderate to severe disc disease from C4 through C7. 2 mm anterolisthesis C7 on T1 and T1 on T2. The spinal cord signal intensity and intrinsic morphology is normal. Cervicomedullary junction is normal in appearance. There are no suspicious marrow signal abnormalities. Paraspinal sof t tissue is unremarkable. Level by level evaluation: C2-C3: Disc does not extend beyond the endplate margin. Uncovertebral joint arthropathy: None. Facet joint arthropathy: Moderate bilateral facet arthropathy.. Neural foraminal stenosis: No stenosis. Central canal stenosis: No stenosis. C3-C4: There is a mild diffuse disc bulge. Uncovertebral joint arthropathy: Moderate left, mild to moderate right. Facet joint arthropathy: Moderate to severe left, moderate right. Neural foraminal stenosis: Mild to moderate left, mild right. Central canal stenosis: No stenosis. C4-C5: There is a mild diffuse disc bulge. Uncovertebral joint arthropathy: Moderate bilateral. Facet joint arthropathy: Severe right, moderate left. Neural foraminal stenosis: Moderate to severe right, mild to moderate left. Central canal stenosis: Mild . C5-C6: There is a mild diffuse disc bulge. Uncovertebral joint arthropathy: Moderate to severe right, moderate left. Facet joint arthropathy: Moderate right, mild to moderate left. Neural foraminal stenosis: Moderate to severe right, moderate left. Central canal stenosis: Mild. C6-C7: There is a mild diffuse disc bulge. Uncovertebral joint arthropathy: Moderate bilateral. Facet joint arthropathy: Mild to moderate right, mild left. Neural foraminal stenosis: Moderate left, mild to moderate right. Central canal stenosis: Mild. C7-T1: Disc does not extend beyond the endplate margin. Uncovertebral joint arthropathy: None. Facet joint arthropathy: Mild to moderate bilateral. Neural foraminal stenosis: No stenosis. Central canal stenosis: No stenosis. IMPRESSION: 1. Advanced lower cervical spondylosis. Reviewed, dictated and finalized at location G.
== END 2020-02-29 12:32 | disposition home or self-care (01) ==
PROVIDERS: PCP Internal Medicine; Visit Provider Psychiatry & Neurology Neurology
DX: R20.0 Anesthesia of skin (principal); M47.812 Spondylosis without myelopathy or radiculopathy, cervical region
CPT/HCPCS: 72141

== ENCOUNTER 2021-03-23 14:43 | Outpatient (CLI) | payer MEDICARE, SELFPAY ==
--- NOTE | ~2021-03-23 | MR_ITS ---
EXAMINATION: MR brain IAC wo con DATE: 03/23/2021 15:57 INDICATION: Unspecified hearing loss, unspecified ear. TECHNIQUE: Magnetic resonance imaging (MRI) of the brain, brainstem, and internal auditory canals was performed without intravenous contrast. Sequences included sagittal and axial T1-weighted FSE, axial diffusion-weighted FS EPI, axial T2*-weighted GRE, axial T2-weighted FLAIR Propeller, axial T2-weigh devyn Propeller, small rseye-vc-[id number] coronal FIESTA, small uoelw-vg-fwit coronal T1-weighted FSE, and s mall yegjk-[id number] axial T1-weighted SPGR. Apparent diffusion coefficient (ADC) maps were created. COMPARISON: Brain MRI 01/09/2020, head CT 01/08/2020 FINDINGS: There are scattered areas of nonspecific increased T2-weighted signal intensity in the cere bral white matter, which is within normal limits for the patient's age. There is no intracranial hemo rrhage, acute infarction, or abnormal intracranial mass lesion. The ventricles are normal in size. Th ere is mild mucosal thickening in the ethmoid sinuses. The orbits are normal. There is a small right otomastoid effusion. IMPRESSION: 1. Normal aging brain. 2. Small right otomastoid effusion. Reviewed, dictated and finalized at location A.
== END 2021-03-23 14:44 | disposition home or self-care (01) ==
PROVIDERS: PCP Internal Medicine; Visit Provider Internal Medicine
DX: H91.90 Unspecified hearing loss, unspecified ear (principal); H92.01 Otalgia, right ear
CPT/HCPCS: 70551

== ENCOUNTER 2021-05-09 00:51 | Day surgery (SDC) | payer MEDICARE, SELFPAY ==
[2021-04-30 08:52] VITALS: BMI 37.5
--- NOTE | 2021-05-08 15:27 | PM.HPGS ---
History of Present Illness History of Present Illness Consent: Risks, benefits, and alternatives have been discussed and questions answered. Patient agrees to proceed with procedure. Chief complaint: hx of colon polyps Narrative: Hue Raygoza is a 75 year old female with a history of polyps who is here today for colon cancer screening . She had a polyp removed about 6 years ago Review of Systems Review of Systems: All systems reviewed & are unremarkable except as noted in HPI and below PMFSH Past Medical History Medical History Arthritis CAD (coronary artery disease) medically treated . Myocardial infarction 1986. No intervention was performed. History of poliomyelitis she stated she had a mild case as a child and uses a walker. Hyperlipidemia Hypertension Old PR (myocardial infarction) FEDE (obstructive sleep apnea) Surgical History Surgical History H/O oral surgery History of cardiac catheterization 1986 after myocardial infarction. No angioplasty or stent as the vessel was reported as hard to read. History of extraction of renal calculus History of partial hysterectomy History of removal of pigmented skin lesion Family History Family History Mother Thyroid disease when she was 97. Father Valvular heart disease Sibling Valvular heart disease 2 brothers Social History Social History Social History: the patient resides with her in [place]. He is the durable power printing pressman for healthcare. She desires to be a full code. 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 She never smoked used marijuana, tobacco or drug abuse. She has 3 children. Smoking status: Never smoker Second hand tobacco smoke exposure: No Alcohol intake: never Substance use: never Substance use type: does not use Living arrangements: with family Gender identity (if verbalized by the patient): Female Sexual Orientation (if Verbalized by the Patient): Straight or Heterosexual Spiritual care concerns: No Meds Home Medications and Allergies Home Medications Medication Instructions Recorded Confirmed Type aspirin 81 mg PO DAILY 01/08/20 04/30/21 History triamterene 37.5 1 tablet PO DAILY #90 tablet 03/24/20 04/30/21 Rx mg-hydrochlorothiazide 25 mg tablet losartan 25 mg tablet See Rx Instructions .ROUTE 07/03/20 04/30/21 Rx .COMPLEX #90 tablet omega-3 fatty acids 1,000 mg 1,000 mg PO DAILY 08/08/20 04/30/21 History capsule amlodipine 10 mg tablet 10 mg PO DAILY 30 Days #90 tablet 09/26/20 04/30/21 Rx ezetimibe 10 mg tablet 10 mg PO DAILY #90 tablet 12/26/20 04/30/21 Rx gabapentin 300 mg capsule 300 mg PO QHS #90 cap 02/21/21 04/30/21 Rx Allergies Allergy/AdvReac Type Severity Reaction Status Date / Time latex Allergy Severe Swelling Verified 05/09/21 09:05 ATORVASTATIN CALCIUM Allergy Severe Muscle pain Uncoded 05/09/21 09:05 Exam Const: General: alert Orientation/consciousness: patient oriented x3 Resp: Auscultation: clear to auscultation bilaterally Cardio: Rhythm: regular rhythm GI: GI Palp: Yes Soft to palpation and No Tenderness to palpation present (GI) Neuro: General: patient oriented x3 Assessment and Plan Assessment and plan (1) Colon cancer screening: Code(s): Z12.11 - Encounter for screening for malignant neoplasm of colon Status: Acute Assessment and Plan: Colonoscopy with possible biopsy or polypectomy or cautery or injection of substances.
--- NOTE | 2021-05-09 08:06 | WPDANESEPPF ---
Anes - Initial Pre Proc Eval Procedure: Operation Date: 05/09/21 10:00 Proposed Procedures p Screening Colonoscopy - Frederick Rankin MD Date/Time: 05/09/21 08:06 Surgeon: Frederick Rankin MD Pre Op Diagnosis: hx of colon polyps Patient Data Age: 75 Gender: F Height: 1.78 m Weight: 118.5 kg Allergies Allergy/AdvReac Type Severity Reaction Status Date / Time latex Allergy Severe Swelling Verified 05/09/21 09:05 ATORVASTATIN CALCIUM Allergy Severe Muscle pain Uncoded 05/09/21 09:05 Home Medications Medication Instructions Recorded Confirmed Type aspirin 81 mg PO DAILY 01/08/20 04/30/21 History triamterene 37.5 1 tablet PO DAILY #90 tablet 03/24/20 04/30/21 Rx mg-hydrochlorothiazide 25 mg tablet losartan 25 mg tablet See Rx Instructions .ROUTE 07/03/20 04/30/21 Rx .COMPLEX #90 tablet omega-3 fatty acids 1,000 mg 1,000 mg PO DAILY 08/08/20 04/30/21 History capsule amlodipine 10 mg tablet 10 mg PO DAILY 30 Days #90 tablet 09/26/20 04/30/21 Rx ezetimibe 10 mg tablet 10 mg PO DAILY #90 tablet 12/26/20 04/30/21 Rx gabapentin 300 mg capsule 300 mg PO QHS #90 cap 02/21/21 04/30/21 Rx Patient hx anesthesia problems: none Family hx anesthesia problems: none Results Review: All pre-operative results and documents have been reviewed as part of the pre-operative evaluation. [facility] Past Medical History Medical History Arthritis CAD (coronary artery disease) medically treated . Myocardial infarction 1986. No intervention was performed. History of poliomyelitis she stated she had a mild case as a child and uses a walker. Hyperlipidemia Hypertension [place] (myocardial infarction) FEDE (obstructive sleep apnea) Surgical History Surgical History H/O oral surgery History of cardiac catheterization 1986 after myocardial infarction. No angioplasty or stent as the vessel was reported as hard to read. History of extraction of renal calculus History of partial hysterectomy History of removal of pigmented skin lesion Family History Family History Mother Thyroid disease when she was 97. Father Valvular heart disease Sibling Valvular heart disease 2 brothers Social History Social History Social History: the patient resides with her in [place]. He is the durable power real estate attorney for healthcare. She desires to be a full code. 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 She never smoked used marijuana, tobacco or drug abuse. She has 3 children. Smoking status: Never smoker Second hand tobacco smoke exposure: No Alcohol intake: never Substance use: never Substance use type: does not use Living arrangements: with family Gender identity (if verbalized by the patient): Female Sexual Orientation (if Verbalized by the Patient): Straight or Heterosexual Spiritual care concerns: No Anes - Eval Final PreProcedure Day of Procedure 05/09/21 08:06 Patient weight: obese Heart: regular rate and rhythm Lungs: clear to auscultation and normal air movement Airway: Mallampati scale class II Neurological: alert and oriented Last oral intake: >/= 8 hours ASA classification: III Emergent: no Anesthetic plan: proceed Anesthesia type and monitoring: general GIVS and standard monitoring Results Review: All pre-operative results and documents have been reviewed as part of the pre-operative evaluation. Informed Consent: The patient's anesthetic plan and its attendant risks and benefits were discussed with the patient/family/POA. Questions were solicited and answers provided to the satisfaction of the patient/family/POA.
[2021-05-09 09:07] VITALS: BP 144/93; PULSE 72; RESP 20; TEMP 36.1; O2SAT 98; BMI 37.4
[2021-05-09] MEDS: LACTATED RINGERS 1,000 ML 150 ML IV CONT (09:22)
[2021-05-09 10:49] VITALS: BP 108/62; PULSE 52; RESP 17; O2SAT 99
[2021-05-09 10:59] VITALS: BP 118/81; PULSE 53; RESP 22; O2SAT 99
[2021-05-09 11:09] VITALS: BP 131/80; PULSE 50; RESP 16; O2SAT 99
== END 2021-05-09 11:18 | disposition home or self-care (01) ==
PROVIDERS: PCP Internal Medicine; Visit Provider Internal Medicine Gastroenterology
PROC: 0DJD8ZZ Inspection of Lower Intestinal Tract, Via Natural or Artificial Opening Endoscopic (ICD-10-PCS; CPT 45378; principal; 2021-05-09 10:00)
DX: Z12.11 Encounter for screening for malignant neoplasm of colon (principal); K57.30 Diverticulosis of large intestine without perforation or abscess without bleeding; Z86.010 Personal history of colon polyps; I25.10 Atherosclerotic heart disease of native coronary artery without angina pectoris; I10 Essential (primary) hypertension; I25.2 Old myocardial infarction; E78.5 Hyperlipidemia, unspecified; G47.33 Obstructive sleep apnea (adult) (pediatric); Z86.12 Personal history of poliomyelitis; E66.9 Obesity, unspecified; Z68.37 Body mass index [BMI] 37.0-37.9, adult; Z79.82 Long term (current) use of aspirin
CPT/HCPCS: G0105; J2704; J7120

== ENCOUNTER 2021-10-24 10:29 | Outpatient (CLI) | payer MEDICARE, SELFPAY ==
--- NOTE | ~2021-10-24 | MM_ITS ---
EXAMINATION: MM screening jimenez BI w rober HISTORY: Screening mammogram TECHNIQUE: Craniocaudal and mediolateral oblique 3-D tomosynthesis images were obtained and synthetic 2-D images were generated. CAD analysis was submitted and interpreted. COMPARISON: No prior mammogram is available for comparison at this institution. BREAST PARENCHYMAL COMPOSITION: There are scattered areas of fibroglandular density. FINDINGS: RIGHT BREAST: There is no suspicious mass, calcification, or architectural distortion to suggest clinton gnancy. LEFT BREAST: There is a mass in the posterior third of the upper inner quadrant of the breast. IMPRESSION: 1. Left breast mass. 2. Additional mammographic views and possible breast ultrasound are recommended. BI-RADS Category 0: Incomplete: Needs additional imaging evaluation. Reviewed, dictated and finalized at location A. IMPRESSION: 1. Left breast mass. 2. Additional mammographic views and possible breast ultrasound are recommended . BI-RADS Category 0: Incomplete: Needs additional imaging evaluation.
--- NOTE | ~2021-10-24 | DEXA_ITS ---
Bone Density Report Name: KAVITHA RUIZ Age: 75 Sex: Female Ethnicity: White Date of : 1945 Indication: postmenopausal; screening for osteoporosis; height loss; prior fracture; cancer; hysterectomy; Referring Provider: ZURDO ROTH Study: Bone densitometry was performed. Exam Date: October 24, 2021 Accession number: [id number] Bone Density: Region BMD T-score Z-score Classification AP Spine(L1-L4) 1.290 2.2 4.8 Normal Femoral Neck (Left) 0.713 -1.2 1.0 Osteopenia Total Hip (Left) 0.893 -0.4 1.5 Normal Femoral Neck (Right) 0.684 -1.5 0.7 Osteopenia Total Hip (Right) 0.856 -0.7 1.2 Normal Total Hip Mean 0.875 -0.6 1.4 Normal World Health Organization criteria for BMD impression classify patients as: Normal (T-score at or above -1.0), Osteopenia (T-score between -1.0 and -2.5), or Osteoporosis (T-score at or below -2.5). 10-year Fracture Risk(1): Major Osteoporotic Fracture 16% Hip Fracture 3.1% Reported Risk Factors: [place] (), Neck BMD=0.684, BMI=41.3, previous fracture (1) FRAX(R) Version 3.08. Fracture probability calculated for an untreated patient. Fracture probability may be lower if the patient has received treatment. Clinical Information Provided by Patient: Has had a low trauma fracture Has the following medical conditions: Cancer, Hysterectomy, MELANOMA Patient maximum height was 70 Menopause Age: 46 No regular weight bearing exercise Onset of menses at age 12 Number of children 2 Impression: The patient has low bone mass, based on the Right Femoral Neck T-score. The patient has an estimated ten-year risk of hip fracture of 3.1% and an estimated ten-year risk of major fracture of 16%, based on the WHO FRAX algorithm. The patient has risk factors, including: previous fracture. Discussion: BONE DENSITY IS LOW AT ONE OR MORE SKELETAL SITES. THE PATIENT'S BMD AND CLINICAL RISK FACTORS CONTRIBUTE TO THIS PATIENT'S INCREASED RISK OF FRACTURE. This patient's lowest T-score is low at one or more skeletal sites. It meets the World Health Organization's (WHO) criteria for ?low bone mass? (T-score between -1.0 and -2.5). The patient's 10-year risk of hip fracture as calculated by FRAX exceeds the threshold where pharmacological therapy is recommended by the National Osteoporosis Foundation (NOF). However, all treatment decisions require clinical judgment and consideration of individual patient factors, including patient preferences, comorbidities, previous drug use, risk factors not captured in the FRAX model (e.g., frailty, falls, vitamin D deficiency, increased bone turnover, interval significant decline in bone density) and possible under or overestimation of fracture risk by FRAX. The patient should follow a healthful lifestyle (good nutrition with
== END 2021-10-24 10:30 | disposition home or self-care (01) ==
PROVIDERS: PCP Internal Medicine; Visit Provider Internal Medicine
DX: Z12.31 Encounter for screening mammogram for malignant neoplasm of breast (principal); Z78.0 Asymptomatic menopausal state; R92.8 Other abnormal and inconclusive findings on diagnostic imaging of breast; M85.851 Other specified disorders of bone density and structure, right thigh
CPT/HCPCS: 77063; 77067; 77080

== ENCOUNTER 2021-11-14 11:23 | Outpatient (CLI) | payer MEDICARE, SELFPAY ==
--- NOTE | ~2021-11-14 | MMUS_ITS ---
EXAMINATION: MM diagnostic jimenez LT w rober, US breast LT limited HISTORY: Left breast mass on screening mammogram TECHNIQUE: Additional 3-D tomosynthesis images of the left breast were performed and synthetic 2-D im ages were generated. CAD analysis was submitted and interpreted. High resolution limited left breast ultrasound was performed. COMPARISON: 10/24/2021 FINDINGS: MAMMOGRAPHIC FINDINGS: There is a 1.4 x 0.6 cm oval, circumscribed, equal density mass in the posterior third of the upper i nner quadrant of the breast at the 11:00 location 12 cm from the nipple. No suspicious calcification or architectural distortion are identified. ULTRASOUND: There is an 11 mm a 6 mm oval, circumscribed, parallel, hypoechoic mass with posterior acoustic enhan cement and no internal vascularity at the 10:00 location 12 cm from the nipple corresponding to the m ammographic finding in question. IMPRESSION: 1. Probably benign left breast mass. 2. Recommend 6 month follow-up left diagnostic mammogram and ultrasound. BI-RADS category 3, probably benign findings. Reviewed, dictated and finalized at location A. IMPRESSION: 1. Probably benign left breast mass. 2. Recommend 6 month follow-up left diagnostic mammogram and ultrasound. BI-RADS category 3, probably benign findings.
== END 2021-11-14 11:24 | disposition home or self-care (01) ==
PROVIDERS: PCP Internal Medicine; Visit Provider Internal Medicine
DX: N63.22 Unspecified lump in the left breast, upper inner quadrant (principal)
CPT/HCPCS: 76642; 77061; 77065; G0279

== ENCOUNTER → 2021-11-20 10:59 | Outpatient (REF) | payer MEDICARE, SELFPAY | LOC: ANHLAB 10:59 | PROVIDERS: PCP Internal Medicine; Visit Provider Nurse Practitioner | DX: L81.4 Other melanin hyperpigmentation (principal) | CPT/HCPCS: 88305 ==

== ENCOUNTER 2022-07-02 11:53 | Outpatient (CLI) | payer MEDICARE, SELFPAY ==
--- NOTE | ~2022-07-02 | MMUS_ITS ---
EXAMINATION: MM diagnostic jimenez LT w rober, US breast LT limited HISTORY: Six-month follow-up of 11 x 6 mm oval circumscribed parallel hypoechoic mass with posterior acoustic enhancement and no internal vascularity at 10:00 position 12 cm from nipple TECHNIQUE: ML, MLO and CC 3-D tomosynthesis images of the left breast were performed and synthetic 2- D images were generated. CAD analysis was submitted and interpreted. High resolution targeted 10:00 1 2 cm from nipple left breast ultrasound was performed. COMPARISON: 11/14/2021 diagnostic left mammogram and limited left breast ultrasound 10/24/2021 bilateral screening mammogram BREAST PARENCHYMAL COMPOSITION: There are scattered areas of fibroglandular density. FINDINGS: MAMMOGRAPHIC FINDINGS: Stable circumscribed approximately 5.4 x 10.2 mm opacity is noted in the posterior upper inner left b reast within approximately 2 cm of the mid sagittal plane. This appears stable since 10/24/2021. No other mass or any architectural distortion or malignant calcification, skin thickening or retracti on is noted. Scattered benign calcifications, including many calcified benign sebaceous cysts. ULTRASOUND: There is a parallel circumscribed sonolucency measuring 10 x 5.3 x 5.5 mm, without internal vasculari ty or posterior shadowing, benign in appearance, stable since 11/24/2021. IMPRESSION: 1. Benign finding 2. Routine annual mammographic screening is recommended. BI-RADS Category 2: Benign finding(s). Reviewed, dictated and finalized at location A. A ASSISTANT IMPRESSION: 1. Benign finding 2. Routine annual mammographic screening is recommended. BI-RADS Category 2: Benign finding(s).
== END 2022-07-02 11:54 | disposition home or self-care (01) ==
PROVIDERS: PCP Family Medicine; Visit Provider Family Medicine
DX: R92.8 Other abnormal and inconclusive findings on diagnostic imaging of breast (principal)
CPT/HCPCS: 76642; 77061; 77065; G0279

== ENCOUNTER 2023-02-04 11:21 | Outpatient (CLI) | payer MEDICARE, SELFPAY ==
[2023-02-04 15:37] LABS: Alanine Aminotransferase 34 U/L (6-35); Albumin Level 4.3 g/dL (3.5-5.1); Alkaline Phosphatase 82 U/L (38-126); Anion Gap 4 mmol/L (8-16); Aspartate Amino Transferase 34 U/L (14-36); Bilirubin,Total 0.8 mg/dL (0.2-1.3); Blood Urea Nitrogen 19 mg/dL (7-17); Calcium 9.3 mg/dL (8.4-10.2); Carbon Dioxide 33 mmol/L (22-30); Chloride 102 mmol/L (98-107); Estimated Glomerular Filt Rate > 60; Glucose 100 mg/dL (65-110); Sodium 139 mmol/L (137-145)
== END 2023-02-04 11:22 | disposition home or self-care (01) ==
PROVIDERS: PCP Family Medicine; Visit Provider Family Medicine
DX: Z13.228 Encounter for screening for other metabolic disorders (principal)
CPT/HCPCS: 36415; 80053

== ENCOUNTER 2023-06-03 12:05 | Emergency (ER) | payer MEDICARE, SELFPAY ==
[2023-06-03] VITALS (29 sets, daily range): BP systolic 145–183; BP diastolic 61–140; PULSE 50–66; RESP 11–20; TEMP 36.4; O2SAT 97–100
--- NOTE | ~2023-06-03 | CT_ITS ---
EXAMINATION: CT abdomen pelvis wo con DATE: 06/03/2023 19:40 INDICATION: L flank/LLQ abd pain, hx stone, N/V TECHNIQUE: Computed tomography (CT) of the abdomen and pelvis was performed without intravenous contr ast. Automated exposure control and iterative reconstruction technique were employed. The dose-length product was 935.90 mGy-cm. COMPARISON: 11/29/2015. FINDINGS: Lower thorax: Unremarkable Liver: Normal. Biliary/Gallbladder: Gallbladder is normal. No bile duct dilation. Pancreas: No mass or duct dilation. Spleen: Normal. Adrenals:No mass. Kidneys: No suspicious mass, obstructing stone, or hydronephrosis. Multiple nonobstructing left infer ior pole and punctate right renal stones. Right renal ectopia. GI tract: No small or large bowel dilation. Normal appendix. Diverticulosis without diverticulitis. Mesentery/Peritoneum: No ascites, mass, or free air. Retroperitoneum: No mass. Pelvis: 5 x 7 mm left pelvic calcification, presumably in the path of the distal left ureter although there is no hydronephrosis. 5.6 x 3.2 cm bilobed soft tissue density in the right adnexa. Soft Tissues: Soft tissues and body wall unremarkable. Bones: No acute osseous finding. IMPRESSION: 5 x 7 mm left pelvic calcification, apparently within the distal left ureter, although there are no s igns of obstructive uropathy, which would be expected with a stone of this size. Stone position could be confirmed with CT urography. Bilobed 5.6 x 3.2 cm soft tissue density in the right adnexa of uncertain etiology/clinical significa nce. Consider nonemergent but timely pelvic ultrasound for further evaluation. Reviewed, dictated and finalized at location K. [facility] IMPRESSION: 5 x 7 mm left pelvic calcification, apparently within the distal left ureter, a lthough there are no signs of obstructive uropathy, which would be expected wit h a stone of this size. Stone position could be confirmed with CT urography. Bilobed 5.6 x 3.2 cm soft tissue density in the right adnexa of uncertain etiol ogy/clinical significance. Consider nonemergent but timely pelvic ultrasound fo r further evaluation.
--- NOTE | 2023-06-03 20:09 | ED.ABDPAIN ---
HPI - Abdominal Pain General Chief Complaint: Abdominal Pain Stated Complaint: abd pain x1 emisis Time Seen by Provider: 06/03/23 18:23 Source: patient Mode of arrival: ambulatory Limitations: no limitations History of Present Illness HPI narrative: patient is a 77-year-old female, with PMH of poliomyelitis, who presents the ED with report of left-sided abdominal pain. Patient reports she developed pain this morning while sitting down in her left upper abdomen /left flank region. She states the pain came on suddenly and was very severe at 1st. [place] similar to when she previously had a kidney stone. Pain was persistent for several hours, but has been intermittent since then, lessened in severity. She did not take anything for pain. She did report nausea & vomiting associated with the onset of the pain, denies any nausea currently. Denies diarrhea, constipation. Denies dysuria, hematuria. Denies fevers. Related Data Home Medications Medication Instructions Recorded Confirmed aspirin 81 mg chewable tablet 81 mg PO DAILY 01/08/20 04/22/23 omega-3 fatty acids 1,000 mg 1,000 mg PO DAILY 08/08/20 04/22/23 capsule (Fish Oil Concentrate) Allergies Allergy/AdvReac Type Severity Reaction Status Date / Time latex Allergy Severe Swelling Verified 05/27/23 13:45 ATORVASTATIN CALCIUM Allergy Severe Muscle pain Uncoded 05/27/23 13:02 Review of Systems Review of Systems: CONSTITUTIONAL: Denies fever, chills, or sweats. GASTROINTESTINAL: See HPI. GENITOURINARY: Denies dysuria or hematuria. MUSCULOSKELETAL: See HPI. NEUROLOGIC: Denies headache, dizziness, numbness, or weakness. All systems reviewed & are unremarkable except as noted in HPI and below PMFSH Past Medical History Medical History Arthritis CAD (coronary artery disease) medically treated . Myocardial infarction 1986. No intervention was performed. History of poliomyelitis she stated she had a mild case as a child and uses a walker. Hyperlipidemia Hypertension Obese [place] (myocardial infarction) FEDE (obstructive sleep apnea) Surgical History Surgical History H/O oral surgery History of cardiac catheterization 1986 after myocardial infarction. No angioplasty or stent as the vessel was reported as hard to read. History of extraction of renal calculus History of partial hysterectomy History of removal of pigmented skin lesion Family History Family History Mother Thyroid disease when she was 97. Father Valvular heart disease Sibling Valvular heart disease 2 brothers Social History Social History Social History: the patient resides with her in [place]. He is the durable power packaging clerk for healthcare. She desires to be a full code. 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 She never smoked used marijuana, tobacco or drug abuse. She has 3 children. Smoking status: Never smoker Second hand tobacco smoke exposure: No Alcohol intake: never Substance use: never Substance use type: does not use Do You Feel Safe in your Home?: Yes Lack of Transportation: No Lack of Food: Never True Current Housing: I Have Housing Concerned About Future Housing: No Difficulty Paying Gas/Electric Bills: No Difficulty Paying for Meds: No Currently Unemployed: No Education: Master's Degree or Higher Difficulty w/ Childcare or Family Care: No Living arrangements: with family Occupation/Education: retired Gender identity (if verbalized by the patient): Female Sexual Orientation (if Verbalized by the Patient): Straight or Heterosexual Spiritual care concerns: No Exam Narrative:
[2023-06-03] MEDS: SODIUM CHLORIDE 0.9% IV 500 ML 999 ML IV CONT (20:59)
[2023-06-03 21:06] LABS: Basophils Percent Auto 0.6 % (0.2-1.2); Eosinophils Absolute Auto 0.1 K/mm3 (0-0.3); Hematocrit 45.3 % (37.0-47.0); Hemoglobin 14.1 g/dL (12.0-15.0); Immature Granulocyte Absolute 0.01 K/mm3 (0.00-0.031); Immature Granulocyte Percent A 0.2 % (0-0.5); Lymphocytes Absolute Auto 1.31 K/mm3 (0.9-3.2); Lymphocytes Percent Auto 26.7 % (18.3-44.2); Mean Corpuscular HGB Conc 31.1 g/dl (32-36); Mean Corpuscular Hemoglobin 27.4 pg (26-34); Mean Platelet Volume 11.9 fl (7.4-10.4); Monocytes Absolute Auto 0.3 K/mm3 (0.1-0.6); Monocytes Percent Auto 6.7 % (2.6-8.5); Neutrophils Absolute Auto 3.2 K/mm3 (1.3-6.7); Neutrophils Percent Auto 64.8 % (45.5-73.1); Platelet Count Result 181 k/mm3 (150-375); Red Blood Count 5.15 M/mm3 (4.2-5.4); Red Cell Distribution Width 14.1 % (11.5-14.5); White Blood Count 4.9 K/mm3 (4.5-10.0)
[2023-06-03 21:10] LABS: Appearance Urine Clear (Clear); Bilirubin Urine Negative (Negative); Blood Urine Negative (Negative); Color Urine Yellow (Yellow); Glucose Urine UA Negative (Negative); Ketones Urine Negative (Negative); Leukocyte Esterase Ur Negative LEU/UL (Negative); Nitrate Urine Negative (Negative); Protein Urine Negative (Negative); Specific Grav Ur 1.008 (1.001-1.035); Urobilinogen Urine 0.2 mg/dL (<2.0)
[2023-06-03 21:13] LABS: Add Urine Microscopic? NO
[2023-06-03 21:17] LABS: Alanine Aminotransferase 39 U/L (6-35); Albumin Level 4.5 g/dL (3.5-5.1); Alkaline Phosphatase 83 U/L (38-126); Anion Gap 10 mmol/L (8-16); Aspartate Amino Transferase 36 U/L (14-36); Bilirubin,Total 0.9 mg/dL (0.2-1.3); Blood Urea Nitrogen 16 mg/dL (7-17); Calcium 9.5 mg/dL (8.4-10.2); Carbon Dioxide 26 mmol/L (22-30); Chloride 104 mmol/L (98-107); Estimated Glomerular Filt Rate > 60; Glucose 103 mg/dL (65-110); Lipase 76 U/L (23-300); Potassium 3.6 mmol/L (3.4-5.0); Sodium 140 mmol/L (137-145)
[2023-06-04 00:04] VITALS: RESP 16
== END 2023-06-04 00:24 | disposition home or self-care (01) ==
PROVIDERS: Emergency Provider Physician Assistant; PCP Family Medicine
DX: N20.1 Calculus of ureter (principal); R19.09 Other intra-abdominal and pelvic swelling, mass and lump; I25.10 Atherosclerotic heart disease of native coronary artery without angina pectoris; I25.2 Old myocardial infarction; I10 Essential (primary) hypertension; E78.5 Hyperlipidemia, unspecified; G47.33 Obstructive sleep apnea (adult) (pediatric); Z86.12 Personal history of poliomyelitis; Z79.82 Long term (current) use of aspirin
CPT/HCPCS: 36415; 74176; 80053; 81003; 83690; 85025; 96360; 99284; J7040

== ENCOUNTER 2023-09-23 11:38 | Outpatient (CLI) | payer MEDICARE, SELFPAY ==
[2023-09-23 19:32] LABS: Alanine Aminotransferase 33 U/L (6-35); Albumin Level 4.3 g/dL (3.5-5.1); Alkaline Phosphatase 71 U/L (38-126); Anion Gap 4 mmol/L (4-12); Aspartate Amino Transferase 38 U/L (14-36); Bilirubin,Total 1.1 mg/dL (0.2-1.3); Blood Urea Nitrogen 22 mg/dL (7-17); Calcium 9.7 mg/dL (8.4-10.2); Carbon Dioxide 30 mmol/L (22-30); Chloride 105 mmol/L (98-107); Cholesterol 178 mg/dL (0-200); Estimated Glomerular Filt Rate > 60; Glucose 113 mg/dL (65-110); HDL Direct 60 mg/dL; Potassium 4.1 mmol/L (3.4-5.0); Sodium 139 mmol/L (137-145); Triglycerides 277 mg/dL (<150)
[2023-09-23 19:43] LABS: LDL Cholesterol Direct 51 mg/dL
== END 2023-09-23 11:39 | disposition home or self-care (01) ==
LOC: ANHGOSHLAB 11:39
PROVIDERS: PCP Family Medicine; Visit Provider Family Medicine
DX: E78.5 Hyperlipidemia, unspecified (principal); Z13.29 Encounter for screening for other suspected endocrine disorder; Z13.228 Encounter for screening for other metabolic disorders
CPT/HCPCS: 36415; 80053; 80061; 84443

== ENCOUNTER 2023-11-19 13:17 | Outpatient (CLI) | payer MEDICARE, SELFPAY ==
--- NOTE | ~2023-11-19 | DEXA_ITS ---
Bone Density Report Name: KAVITHA RUIZ Age: 77 Sex: Female Ethnicity: White Date of : 1945 Indication: postmenopausal; screening for osteoporosis; height loss; cancer; hysterectomy; Referring Provider: RODOLFO LUCAS Study: Bone densitometry was performed. Exam Date: November 19, 2023 Accession number: [id number] Bone Density: Region BMD T-score Z-score Classification AP Spine(L1-L4) 1.293 2.2 4.9 Normal Femoral Neck (Left) 0.671 -1.6 0.7 Osteopenia Total Hip (Left) 0.888 -0.4 1.6 Normal Femoral Neck (Right) 0.680 -1.5 0.8 Osteopenia Total Hip (Right) 0.873 -0.6 1.5 Normal Total Hip Mean 0.880 -0.5 1.6 Normal World Health Organization criteria for BMD impression classify patients as: Normal (T-score at or above -1.0), Osteopenia (T-score between -1.0 and -2.5), or Osteoporosis (T-score at or below -2.5). 10-year Fracture Risk(1): Major Osteoporotic Fracture 12% Hip Fracture 2.7% Reported Risk Factors: [place] (), Neck BMD=0.671, BMI=42.6 (1) FRAX(R) Version 3.08. Fracture probability calculated for an untreated patient. Fracture probability may be lower if the patient has received treatment. Previous Exams: Region Exam Age BMD T-score BMD Change BMD Change Date g/cm2 vs Baseline vs Previous AP Spine (L1-L4) 11/19/2023 77 1.293 2.2 0.004 (0.3%) 0.004 (0.3%) 10/24/2021 75 1.290 2.2 Total Hip(Left) 11/19/2023 77 0.888 -0.4 -0.005 (-0.6%) -0.005 (-0.6%) 10/24/2021 75 0.893 -0.4 Total Hip(Right) 11/19/2023 77 0.873 -0.6 0.016 (1.9%) 0.016 (1.9%) 10/24/2021 75 0.856 -0.7 *Denotes significance at 95% confidence level, LSC for AP Spine = 0.022 g/cm2, LSC for Total Hip = 0.027 g/cm2 Clinical Information Provided by Patient: Has the following medical conditions: Cancer, Hysterectomy Patient maximum height was 70 Menopause Age: 46 No regular weight bearing exercise Onset of menses at age 10 Number of children 2 Impression: The patient has low bone mass, based on the Left Femoral Neck T-score. The patient has an estimated ten-year risk of hip fracture of 2.7% and an estimated ten-year risk of major fracture of 12%, based on the WHO FRAX algorithm. No significant bone loss was observed. Discussion: BONE DENSITY IS LOW AT ONE OR MORE SKELETAL SITES. This patient's lowest T-score is low at one or more skeletal sites. It meets the World Health Organization's (WHO) criteria
--- NOTE | ~2023-11-19 | MM_ITS ---
EXAMINATION: MM screening [facility] BI w rober HISTORY: Screening TECHNIQUE: Craniocaudal and mediolateral oblique 3-D tomosynthesis images were obtained and synthetic 2-D images were generated. CAD analysis was submitted and interpreted. COMPARISON: Comparison to multiple prior studies sequentially, with oldest reviewed study dated 10/24. BREAST PARENCHYMAL COMPOSITION: Not dense: There are scattered areas of fibroglandular density. FINDINGS: Stable benign-appearing mass in the upper inner quadrant of the left breast, middle third. There is no evidence of suspicious mass, calcification, or architectural distortion to suggest malign diandra in either breast. There has been no suspicious interval change. IMPRESSION: 1. No mammographic evidence of malignancy. 2. Recommend routine screening mammography in one year. BI-RADS Category 2: Benign finding(s). Reviewed, dictated and finalized at location B.
== END 2023-11-19 13:18 | disposition home or self-care (01) ==
LOC: ANHIMG 13:23
PROVIDERS: PCP Family Medicine; Visit Provider Family Medicine
DX: Z12.31 Encounter for screening mammogram for malignant neoplasm of breast (principal); Z13.820 Encounter for screening for osteoporosis; M85.9 Disorder of bone density and structure, unspecified; Z78.0 Asymptomatic menopausal state
CPT/HCPCS: 77063; 77067; 77080

== ENCOUNTER 2024-05-17 19:03 | Emergency (ER) | payer MEDICARE, SELFPAY ==
--- NOTE | 2024-05-17 19:17 | ED_ITS ---
HPI - Female Genitourinary General Chief complaint: Upper Respiratory Infection Stated complaint: Kidney Pain Time Seen by Provider: 05/17/24 19:05 Source: patient and family Mode of arrival: ambulatory Limitations: no limitations History of Present Illness HPI Narrative: Hue is an 78-year-old female patient presenting to the clinic today with complaints left flank pain left-sided abdominal pain, urgency, and low urine output. She reports symptoms started yesterday and they were intermittent however now the have gradually gotten worse and are constant. She is unable to rate the pain or tell me the quality of the pain at this time. She states she is just miserable. Denies any fevers or chills. Last bowel movement was this morning and soft. Denies any URI symptoms. No history of kidney stones. Related Data Home Medications Medication Instructions Recorded Confirmed aspirin 81 mg chewable tablet 81 mg PO DAILY 01/08/20 01/27/24 omega-3 fatty acids 1,000 mg 1,000 mg PO DAILY 08/08/20 01/27/24 capsule (Fish Oil Concentrate) Allergies Allergy/AdvReac Type Severity Reaction Status Date / Time latex Allergy Severe Swelling Verified 01/27/24 11:30 ATORVASTATIN CALCIUM Allergy Severe Muscle pain Uncoded 01/27/24 10:42 Review of Systems Review of Systems: Pertinent positives per HPI. Patient denies any fever, chills, rash, headache, visual changes, dizziness, cough, runny nose, sore throat, shortness of breath, chest pain, palpitations, nausea, vomiting, diarrhea, constipation. PMFSH Past Medical History Medical History Arthritis CAD (coronary artery disease) medically treated . Myocardial infarction 1986. No intervention was performed. History of poliomyelitis she stated she had a mild case as a child and uses a walker. Hyperlipidemia Hypertension Obese Old [place] (myocardial infarction) FEDE (obstructive sleep apnea) Surgical History Surgical History H/O oral surgery History of cardiac catheterization 1986 after myocardial infarction. No angioplasty or stent as the vessel was reported as hard to read. History of extraction of renal calculus History of partial hysterectomy History of removal of pigmented skin lesion Family History Family History Mother Thyroid disease when she was 97. Father Valvular heart disease Sibling Valvular heart disease 2 brothers Social History Social History Social History: the patient resides with her in [place]. He is the durable power sales commissions analyst for healthcare. She desires to be a full code. 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 She never smoked used marijuana, tobacco or drug abuse. She has 3 children. Smoking status: Never smoker Second hand tobacco smoke exposure: No Alcohol intake: never Substance use: never Substance use type: does not use Do You Feel Safe in your Home?: Yes Lack of Transportation: No Lack of Food: Never True Current Housing: I Have Housing Concerned About Future Housing: No Difficulty Paying Gas/Electric Bills: No Difficulty Paying for Meds: No Currently Unemployed: No Education: Master's Degree or Higher Difficulty w/ Childcare or Family Care: No Living arrangements: with family Occupation/Education: retired Gender identity (if verbalized by the patient): Female Sexual Orientation (if Verbalized by the Patient): Straight or Heterosexual Spiritual care concerns: No Comments At the time of my signature, I reviewed and agree with the nursing past medical, surgical, social, and family history. There is no relevant family history pertinent to the patient complaint. Exam Narrative: General: Well-developed, morbidly obese, in no apparent distress. Head: Normocephalic, atraumatic. Cardio: Regular rate and rhythm, s1 and s2 normal, no murmur appreciated. Resp: Clear to auscultation bilaterally, no rhonchi, rales, wheezing or rubs. Abdomen: Soft, pliable, bowel sounds present in all quadrants, left mid/lower a bdomen tender to palpation, no organomegly, left CVAT tenderness. Course Course Emergency Course: Portions of this record may have been created with voice recognition software. Level of Care: Express Care Visit Vital Signs Vital signs: Vital signs reviewed MDM - Female Genitourinary MDM Narrative Medical decision making narrative: At the time of visit patient is resting comfortably on the exam table. Patient appears to be nontoxic. Labs: UA shows a trace of leukocytes- no sign of blood Plan: Patient appears to be uncomfortable and urinalysis shows just a trace of leukocytes. Patient is reporting acute flank pain/abdominal pain/nausea. Recommend transfer to the ER for further evaluation to rule out ureterolithiasis/obstruction. Patient would like to go to [facility]. Discussed patient's case with Dr. Ruiz and she accepts patient for transfer by private car. Differential Diagnosis Differential diagnosis: Likely urinary tract infection, cystitis and other (Flank pain/kidney stone) Discharge Plan Discharge Clinical Impression: Acute left flank pain, Left sided abdominal pain, Nausea Patient Disposition: Acute Care Hospital Condition: Stable Instructions: Antibiotic Form Prescriptions: No Action omega-3 fatty acids [Fish Oil Concentrate] 1,000 mg capsule 1,000 mg PO DAILY aspirin 81 mg Tablet,Chewable 81 mg PO DAILY amlodipine 10 mg tablet 10 mg PO DAILY Qty: 90 4RF losartan 25 mg tablet See Rx Instructions .ROUTE .COMPLEX Qty: 90 1RF Dose Instruction: Take 1 tablet by mouth once daily Rx Instructions: Take 1 tablet by mouth once daily hydrocodone-acetaminophen 5-325 mg tablet 1 tablet PO Q8H PRN (Reason: pain) Qty: 14 0RF ondansetron 4 mg tablet,disintegrating 4 mg PO Q8H PRN (Reason: nausea and vomiting) Qty: 30 0RF gabapentin 300 mg capsule 300 mg PO QHS Qty: 90 1RF ezetimibe [Zetia] 10 mg tablet 10 mg PO DAILY Qty: 90 1RF triamterene-hydrochlorothiazid 37.5-25 mg tablet 1 tablet PO DAILY Qty: 90 1RF Follow-up/Referrals: Damien Capps DO [Primary Care Provider] - Time of Disposition: 19:35 Quality NIHSS Nursing Documentation ED NIHSS nursing documentation: reviewed/agree
[2024-05-17 19:26] LABS: EDUAAPPEAR Clear; EDUABILI Negative (Negative); EDUABLOOD Negative (Negative); EDUACOLOR1 Yellow; EDUAGLUCOSE Negative (Negative); EDUAKETONE Negative (Negative); EDUALEUKO Trace (Negative); EDUANITRATE Negative (Negative); EDUAPROTEIN Negative (Negative); EDUAUROBILI 0.2
[2024-05-17 19:46] VITALS: BP 167/90; PULSE 68; RESP 16; TEMP 36.6; O2SAT 99
== END 2024-05-17 19:35 | disposition short-term general hospital (02) ==
PROVIDERS: Emergency Provider Nurse Practitioner Family; PCP Family Medicine
DX: R10.9 Unspecified abdominal pain (principal); R10.32 Left lower quadrant pain; R11.0 Nausea; I25.10 Atherosclerotic heart disease of native coronary artery without angina pectoris; I10 Essential (primary) hypertension; E78.5 Hyperlipidemia, unspecified; M19.90 Unspecified osteoarthritis, unspecified site; I25.2 Old myocardial infarction; E66.9 Obesity, unspecified; Z90.711 Acquired absence of uterus with remaining cervical stump; Z79.82 Long term (current) use of aspirin; Z68.41 Body mass index [BMI] 40.0-44.9, adult
CPT/HCPCS: 81003; 99213; G0463

== ENCOUNTER 2024-05-17 19:51 | Emergency (ER) | payer MEDICARE, SELFPAY ==
--- NOTE | ~2024-05-17 | CT_ITS ---
CT of the Abdomen and Pelvis: Indication: Flank pain Technique: 2.5 mm axial scans were obtained through the abdomen and pelvis following intravenous adm inistration of 100 cc of Omnipaque 350. Dose reduction technique was used on this scan by utilizing a utomated exposure control and iterative reconstruction technique. The dose-length product (DLP) was 1 535.63 mGy-cm. COMPARISON: 06/03/2023 Findings: Scans through the lung bases are unremarkable. Stable hepatic cysts. The spleen, pancreas, gallbladder, adrenals and right kidney are within normal limits. There is a 7 mm round stone at the left UVJ, with mild to moderate left hydroureteronephrosis to this level. Additional 3 mm nonobstructing left renal stone present. Left renal cyst and left per inephric stranding are present. There are atherosclerotic calcifications of the aorta. No lymphadeno chrissy. No bowel obstruction or bowel wall thickening. There is no evidence to suggest acute appendicitis. Images through the pelvis were performed. Urinary bladder otherwise unremarkable. There are 2 adjacen t cysts versus septated cyst in the right ovary, the larger cyst measuring 4.4 cm in diameter, and th e smaller measuring 3.6 cm in diameter. No other adnexal mass seen. No ascites. Impression: 7 mm left UVJ stone with mild to moderate left hydroureteronephrosis. Additional 3 mm nonobstructing left renal stone. 2 right ovarian cyst measuring 4.4 cm and 3.6 cm in diameter respectively, versus one larger septated cyst. This lesion is stable from prior exam. Reviewed, dictated and finalized at [facility]. E LEARNING DESIGNER Impression: 7 mm left UVJ stone with mild to moderate left hydroureteronephrosis. Additional 3 mm nonobstructing left renal stone. 2 right ovarian cyst measuring 4.4 cm and 3.6 cm in diameter respectively, vers us one larger septated cyst. This lesion is stable from prior exam.
[2024-05-17 20:01] VITALS: BP 179/73; PULSE 68; RESP 14; TEMP 36.4; O2SAT 98
[2024-05-17 20:15] LABS: Basophils Percent Auto 0.7 % (0.2-1.2); Eosinophils Absolute Auto 0.1 K/mm3 (0-0.3); Eosinophils Percent Auto 1.6 % (0-4.4); Hematocrit 45.1 % (37.0-47.0); Immature Granulocyte Absolute 0.02 K/mm3 (0.00-0.031); Immature Granulocyte Percent A 0.3 % (0-0.5); Lymphocytes Absolute Auto 1.21 K/mm3 (0.9-3.2); Lymphocytes Percent Auto 21.1 % (18.3-44.2); Mean Corpuscular Hemoglobin 27.4 pg (26-34); Mean Corpuscular Volume 88.3 fl (80-100); Mean Platelet Volume 11.8 fl (7.4-10.4); Monocytes Absolute Auto 0.5 K/mm3 (0.1-0.6); Neutrophils Absolute Auto 3.9 K/mm3 (1.3-6.7); Neutrophils Percent Auto 68.3 % (45.5-73.1); Platelet Count Result 155 k/mm3 (150-375); Red Blood Count 5.11 M/mm3 (4.2-5.4); Red Cell Distribution Width 14.3 % (11.5-14.5); White Blood Count 5.7 K/mm3 (4.5-10.0)
[2024-05-17 20:30] LABS: Alanine Aminotransferase 33 U/L (6-35); Albumin Level 4.2 g/dL (3.5-5.1); Alkaline Phosphatase 98 U/L (38-126); Anion Gap 7 mmol/L (4-12); Aspartate Amino Transferase 33 U/L (14-36); Bilirubin,Total 0.6 mg/dL (0.2-1.3); Blood Urea Nitrogen 28 mg/dL (7-17); Calcium 9.1 mg/dL (8.4-10.2); Carbon Dioxide 21 mmol/L (22-30); Chloride 112 mmol/L (98-107); Estimated Glomerular Filt Rate > 60; Glucose 150 mg/dL (65-110); Lipase 153 U/L (23-300); Potassium 3.8 mmol/L (3.4-5.0); Sodium 140 mmol/L (137-145)
[2024-05-17 23:11] LABS: Add Urine Microscopic? YES; Appearance Urine Clear (Clear); Bacteria Urine None Seen /hpf; Bilirubin Urine Negative (Negative); Blood Urine Negative (Negative); Color Urine Yellow (Yellow); Glucose Urine UA Negative (Negative); Ketones Urine Negative (Negative); Leukocyte Esterase Ur 1+ LEU/UL (Negative); Nitrate Urine Negative (Negative); Non Pathogenic Casts 0-2; Protein Urine Negative (Negative); RBC Urine 0-2 /hpf (0-2); Specific Grav Ur 1.021 (1.001-1.035); Squamous Epithelial Cell Urine Occasional /hpf (Few); Urobilinogen Urine 0.2 mg/dL (<2.0); pH Urine 5.5 (5.0-9.0)
--- NOTE | 2024-05-18 02:40 | ED_ITS ---
HPI - Abdominal Pain General Chief Complaint: Abdominal Pain Stated Complaint: left flank/abd pain, nausea Time Seen by Provider: 05/18/24 02:37 Source: patient, family and other (Spoke with Urgent Care provider Shadi) Mode of arrival: ambulatory Limitations: no limitations History of Present Illness HPI narrative: Patient presents with report of LLQ abdominal pain and left flank pain associated with nausea and increased belching. Pain occurring intermittently since yesterday, can't seem to get comfortable and worse today. History of kidney stones. She has the sensation to urinate but only scant output at times. No fevers or chills. Did vomit while waiting in the ED. Has previously seen urologists but prefers not to re-establish with urology at [place] as had had several issues with various physicians/staff members. LBM 3 o'clock, no slightly soft but no diarrhea, constipation, or blood. She endorses dysuria with pressure when she urinates. Also having urinary frequency but no hematuria. Related Data Home Medications ?Medication ?Instructions ?Recorded ?Confirmed ?Last Taken ?Type aspirin 81 mg chewable tablet 81 mg PO DAILY 01/08/20 01/27/24 05/08/21 History omega-3 fatty acids 1,000 mg 1,000 mg PO DAILY 08/08/20 01/27/24 05/08/21 History capsule (Fish Oil Concentrate) Allergies Allergy/AdvReac Type Severity Reaction Status Date / Time latex Allergy Severe Swelling Verified 01/27/24 11:30 ATORVASTATIN CALCIUM Allergy Severe Muscle pain Uncoded 01/27/24 10:42 [facility] Past Medical History Medical History (Updated 05/19/24 @ 20:00 by Kelsi Ruiz MD) History of kidney stones Obese FEDE (obstructive sleep apnea) Hypertension Old [place] (myocardial infarction) Arthritis Hyperlipidemia History of poliomyelitis she stated she had a mild case as a child and uses a walker. CAD (coronary artery disease) medically treated . Myocardial infarction 1986. No intervention was performed. Surgical History Surgical History H/O oral surgery History of removal of pigmented skin lesion History of extraction of renal calculus History of partial hysterectomy History of cardiac catheterization 1986 after myocardial infarction. No angioplasty or stent as the vessel was reported as hard to read. Family History Family History Mother Thyroid disease when she was 97. Father Valvular heart disease Sibling Valvular heart disease 2 brothers Social History Social History (Updated 05/18/24 @ 02:46 by Kelsi Ruiz MD) Social History: the patient is and resides with her in [place]. He is the durable power fire apparatus sprinkler inspector for healthcare. She desires to be a full code. 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 She never smoked used marijuana, tobacco or drug abuse. She has 3 children. Smoking status: Never smoker Second hand tobacco smoke exposure: No Alcohol intake: never Substance use: never Substance use type: does not use Do You Feel Safe in your Home?: Yes Lack of Transportation: No Lack of Food: Never True Current Housing: I Have Housing Concerned About Future Housing: No Difficulty Paying Gas/Electric Bills: No Difficulty Paying for Meds: No Currently Unemployed: No Education: Master's Degree or Higher Difficulty w/ Childcare or Family Care: No Living arrangements: with family Occupation/Education: retired Gender identity (if verbalized by the patient): Female Sexual Orientation (if Verbalized by the Patient): Straight or Heterosexual Spiritual care concerns: No Exam 2 Narrative: GENERAL: Well-appearing, well-nourished, and in no acute distress. HEAD: Normocephalic, atraumatic. EYES: Non injected, non icteric ENT: Nares clear, no rhinorrhea or epistaxis. NECK: Supple. CHEST: Speaking in full sentences. No respiratory distress. HEART: Regular rate and rhythm. . ABDOMEN: Soft, nondistended. Slight guarding with palpation, particularly on the left. BACK: no cva tenderness bilaterally EXTREMITIES: Normal range of motion. No lower extremity edema. SKIN: Warm, dry, no rash. NEURO: No focal deficits. Alert and oriented x3. PSYCH: Normal mood and affect. Course Vital Signs Vital signs: Vital Signs Temperature 97.5 F L 05/17/24 20:01 Pulse Rate 68 05/17/24 20:01 Respiratory Rate 14 05/17/24 20:01 Blood Pressure 179/73 H 05/17/24 20:01 Pulse Oximetry 98 05/17/24 20:01 Temperature 97.6 F 05/18/24 09:14 Pulse Rate 54 L 05/18/24 09:14 Respiratory Rate 16 05/18/24 09:14 Blood Pressure 159/94 H 05/18/24 09:14 Pulse Oximetry 98 05/18/24 09:14 MDM - Abdominal Pain MDM Narrative Medical decision making narrative: Patient presents with LLQ abdominal pain and left flank pain associated with nausea and vomiting. History of kidney stones. In the emergency department she is afebrile with vital signs notable for hypertension. Patient improved after 1 dose of pain medicine and antiemetic. Nephrolithiasis on CT. Offered ketorolac with tamsulosin but per RN she does decline an additional analgesic medication. At a size that may not spontaneous pass but patient does not prefer to re-establish with [facility] if possible so, given afebrile and without leukocytosis or impaired renal function, reasonable to trial conservative management. She is given a referral to urologist security incident response engineer if she does decide to follow up, but she is also given ED return precautions. Given discharge prescriptions for tamsulosin, NSAID, and anti-emetic. Differential Diagnosis Differential diagnosis: Likely abdominal pain, calculus of kidney, constipation, diverticulitis and small bowel obstruction Lab Data Attestation: I reviewed the patient's lab results. 05/17/24 20:09 05/17/24 20:09 Labs: Lab Results 05/17/24 05/17/24 Range/Units 20:09 22:53 WBC 5.7 (4.5-10.0) K/mm3 RBC 5.11 (4.2-5.4) M/mm3 Hgb 14.0 (12.0-15.0) g/dL Hct 45.1 (37.0-47.0) % MCV 88.3 (80-100) fl MCH 27.4 (26-34) pg MCHC 31.0 L (32-36) g/dl RDW 14.3 (11.5-14.5) % Plt Count 155 (150-375) k/mm3 MPV 11.8 H (7.4-10.4) fl Immature Gran % (Auto) 0.3 (0-0.5) % Neut % (Auto) 68.3 (45.5-73.1) % Lymph % (Auto) 21.1 (18.3-44.2) % [place] % (Auto) 8.0 (2.6-8.5) % Eos % (Auto) 1.6 (0-4.4) % Baso % (Auto) 0.7 (0.2-1.2) % Lymph # (Auto) 1.21 (0.9-3.2) K/mm3 [place] # (Auto) 0.5 (0.1-0.6) K/mm3 Eos # (Auto) 0.1 (0-0.3) K/mm3 Baso # (Auto) 0.0 (0.0-0.1) K/mm3 Abs Immat Gran (auto) 0.02 (0.00-0.031) K/mm3 Absolute Neuts (auto) 3.9 (1.3-6.7) K/mm3 Absolute Nucleated RBC 0.000 (0.0-0.012) K/mm3 Nucleated RBC % 0.0 (0.0-0.2) % Sodium 140 (137-145) mmol/L Potassium 3.8 (3.4-5.0) mmol/L Chloride 112 H (98-107) mmol/L Carbon Dioxide 21 L (22-30) mmol/L Anion Gap 7 (4-12) mmol/L BUN 28 H (7-17) mg/dL Creatinine 0.80 (0.7-1.0) mg/dL Estim Creat Clear Calc Not Reportable Estimated GFR > 60 (59 - ) Glucose 150 H (65-110) mg/dL Calcium 9.1 (8.4-10.2) mg/dL Total Bilirubin 0.6 (0.2-1.3) mg/dL AST 33 (14-36) U/L ALT 33 (6-35) U/L Alkaline Phosphatase 98 (38-126) U/L Total Protein 7.0 (6.3-8.2) g/dL Albumin 4.2 (3.5-5.1) g/dL Lipase 153 (23-300) U/L Urine Color Yellow (Yellow) Urine Appearance Clear (Clear) Urine pH 5.5 (5.0-9.0) Ur Specific [place] 1.021 (1.001-1.035) Urine Protein Negative (Negative) mg/dL Urine Glucose (UA) Negative (Negative) mg/dL Urine Ketones Negative (Negative) mg/dL Ur Blood (Man) Negative (Negative) Urine Nitrate Negative (Negative) Urine Bilirubin Negative (Negative) Urine Urobilinogen 0.2 (<2.0) mg/dL Leukocyte Esterase Rfl 1+ H (Negative) CORRINE/UL Urine RBC 0-2 (0-2) /hpf Urine WBC 6-10 H (0-3) /hpf Ur Squamous Epith Cells Occasional (Few) /hpf Urine Bacteria None seen /hpf Urine Casts 0-2 Imaging Data My impression: CT Abdomen/Pelvis Stat Rad: Obstructing 6 mm left UVJ stone. Mild hydronephrosis of the left kidney with mild delayed nephrogram. Other findings: Bilobed right adnexal cystic lesion measuring 4.2 x 6.3 cm. Given the patient's age and postmenopausal status, recommend nonemergent ultrasound correlation.. Small left-sided renal cyst. Hepatic steatosis. Radiologist's impression: ITS Impressions Abdomen/Pelvis CT 05/18/24 07:38 Impression: 7 mm left UVJ stone with mild to moderate left hydroureteronephrosis. Additional 3 mm nonobstructing left renal stone. 2 right ovarian cyst measuring 4.4 cm and 3.6 cm in diameter respectively, versus one larger septated cyst. This lesion is stable from prior exam. Discharge Plan Discharge Clinical Impression: Calculus of ureterovesical junction (UVJ), Hydronephrosis of left kidney, Adnexal cyst, Renal cyst, left, Hepatic steatosis, Hyperglycemia Patient Disposition: Home, Self-Care Condition: Stable Instructions: Antibiotic Form, Kidney Stones (ED), Renal Colic (ED), How to Strain Your Urine (ED), Flank Pain (ED), Hydronephrosis (ED), Kidney Cyst (ED) Additional Instructions: Given you prefer conservative management initially and your pain is otherwise been well controlled with first-line medication, you will be discharged with combination of an NSAID (which helps with pain and inflammation and works specifically on the kidney in a particular way to help increase flow), and expulsion agent (tamsulosin/Flomax), as well as oral disintegrating tablets of ondansetron/Zofran which can help with nausea. Maintain your hydration. Return to the emergency department with any new or worsening symptoms such as fever greater than 100.4? F, intractable pain, intractable nausea or vomiting, etc. You can follow-up with the urologist listed below. Allan De La Paz [address], [address], [place] [address] You did have a right bilobed right adnexal cystic lesion. Recommend nonemergent ultrasound correlation for this which your primary care physician can help arrange. Patient Language: Korean Prescriptions: New tamsulosin 0.4 mg capsule 0.4 mg PO DAILY Qty: 12 0RF ibuprofen 600 mg tablet 600 mg PO TID PRN (Reason: pain) Qty: 30 0RF ondansetron 4 mg tablet,disintegrating 4 mg PO Q8H PRN (Reason: nausea and vomiting) Qty: 10 0RF No Action omega-3 fatty acids [Fish Oil Concentrate] 1,000 mg capsule 1,000 mg PO DAILY aspirin 81 mg Tablet,Chewable 81 mg PO DAILY amlodipine 10 mg tablet 10 mg PO DAILY Qty: 90 4RF losartan 25 mg tablet See Rx Instructions .ROUTE .COMPLEX Qty: 90 1RF Dose Instruction: Take 1 tablet by mouth once daily Rx Instructions: Take 1 tablet by mouth once daily hydrocodone-acetaminophen 5-325 mg tablet 1 tablet PO Q8H PRN (Reason: pain) Qty: 14 0RF ondansetron 4 mg tablet,disintegrating 4 mg PO Q8H PRN (Reason: nausea and vomiting) Qty: 30 0RF gabapentin 300 mg capsule 300 mg PO QHS Qty: 90 1RF ezetimibe [Zetia] 10 mg tablet 10 mg PO DAILY Qty: 90 1RF triamterene-hydrochlorothiazid 37.5-25 mg tablet 1 tablet PO DAILY Qty: 90 1RF Follow-up/Referrals: Damien Capps DO [Primary Care Provider] - Time of Disposition: 08:01
[2024-05-18] MEDS: PHENAZOPYRIDINE HCL 100 MG TABLET 200 MG (03:24)
[2024-05-18] MEDS: MORPHINE SULFATE (*CRX) 4 MG/ML INJ (03:24)
[2024-05-18] MEDS: ONDANSETRON INJ 4 MG/2 ML VIAL (03:24)
[2024-05-18] MEDS: TAMSULOSIN HCL 0.4 MG CAPSULE (06:20)
--- NOTE | 2024-05-18 07:07 | PC.NURSE ---
See downtime paper documentation.
[2024-05-18 07:41] VITALS: BP 175/68; PULSE 51; RESP 16; O2SAT 97
[2024-05-18 09:14] VITALS: BP 159/94; PULSE 54; RESP 16; TEMP 36.4; O2SAT 98
== END 2024-05-18 09:16 | disposition home or self-care (01) ==
PROVIDERS: Physician Assistant; Emergency Provider Student in an Organized Health Care Education/Training Program; PCP Family Medicine
DX: N13.2 Hydronephrosis with renal and ureteral calculous obstruction (principal); N83.201 Unspecified ovarian cyst, right side; N28.1 Cyst of kidney, acquired; K76.0 Fatty (change of) liver, not elsewhere classified; R73.9 Hyperglycemia, unspecified; I10 Essential (primary) hypertension; I25.2 Old myocardial infarction; I25.10 Atherosclerotic heart disease of native coronary artery without angina pectoris; E78.5 Hyperlipidemia, unspecified; G47.33 Obstructive sleep apnea (adult) (pediatric); Z87.442 Personal history of urinary calculi; Z86.12 Personal history of poliomyelitis
CPT/HCPCS: 36415; 74177; 80053; 81001; 81003; 83690; 85025; 87086; 96374; 96375; 99284; A9270; J1885; J2270; J2405; Q9967

== ENCOUNTER 2024-06-23 16:13 | Outpatient (CLI) | payer MEDICARE, SELFPAY ==
--- NOTE | ~2024-06-23 | XR_ITS ---
XR abdomen/kub 1V 06/23/2024 16:42 INDICATION: Left ureteral stone TECHNIQUE: KUB COMPARISON: CT dated 05/18/2024 FINDINGS: Bowel gas pattern is normal. There is no evidence of free air, mass, organomegaly, ascites or obstruction. No abnormal calculi are seen. There are pelvic phleboliths. There is severe lumbar spondylosis. The bones appear intact. IMPRESSION: 1: No acute abdominal abnormality identified. Reviewed, dictated and finalized at location A. AGE SEALER
--- NOTE | ~2024-06-23 | CT_ITS ---
CT abdomen pelvis wo con Ordering provider: William De La Paz MD History: 78 years Female with . Lt ureteral; stone . Comparison: May 18, 2024 Technique: CT abdomen and pelvis and without IV and without oral contrast. Automated exposure control and iterative reconstruction technique were employed. The dose-length product was 628.57 mGy-cm. Findings: VISUALIZED LOWER CHEST: Subsegmental atelectasis in the left lung base. UPPER ABDOMINAL ORGANS: Liver: Small hypodensity in the dome of the liver measuring 1.3 cm. An ultrasound is seen in segment #6 measuring 1.4 cm. Slight hepatomegaly. Gallbladder: Normal. Spleen: Normal. Stomach/duodenum: Normal. Pancreas: Normal. Adrenals: Normal. Kidneys: Tiny stones in the left lower pole the largest measures 3 mm. Left lower pole cyst is seen m easuring 3.5 cm. PELVIC ORGANS: The bladder is underfilled. Soft tissue density is seen in the right side of the pelvis and posterior to the uterus which measure s 1.6 x 5.9 x 3.7 cm. These may represent fibroids versus ovarian mass or cysts unchanged from previo us examination. Evaluation and follow-up advised. BOWEL AND MESENTERY: Colon: No evidence of diverticulitis. No evidence of appendicitis. Small Bowel: Normal. No obstruction. Peritoneum/mesentery: No free air or free fluid. No mesenteric lymphadenopathy. RETROPERITONEUM: Mild atheromatous disease of the abdominal aorta. No retroperitoneal lymphadenopat hy. MUSCULOSKELETAL: Superficial soft tissues: The superficial soft tissues are normal. Bones: Age appropriate degenerative changes of the spine. Bilateral sacroiliacs. Levoscoliosis. IMPRESSION: 1. Left kidney lower pole stones with the largest measuring 3 mm. No definite ureteric stones. 2. Left kidney cyst unchanged. 3. 2 hepatic cysts unchanged. Slight hepatomegaly. 4. Soft tissue density posterior to the uterus may be cysts or fibroid or a mass unchanged from prev ious examination. Reviewed, dictated and finalized at location A. RNAL CONTROLS MANAGER IMPRESSION: 1. Left kidney lower pole stones with the largest measuring 3 mm. No definite ureteric stones. 2. Left kidney cyst unchanged. 3. 2 hepatic cysts unchanged. Slight hepatomegaly. 4. Soft tissue density posterior to the uterus may be cysts or fibroid or a ma ss unchanged from previous examination.
== END 2024-06-23 16:14 | disposition home or self-care (01) ==
PROVIDERS: PCP Family Medicine; Visit Provider Urology
DX: N20.1 Calculus of ureter (principal); N20.0 Calculus of kidney; N28.1 Cyst of kidney, acquired; K76.89 Other specified diseases of liver; R16.0 Hepatomegaly, not elsewhere classified; R93.89 Abnormal findings on diagnostic imaging of other specified body structures
CPT/HCPCS: 74018; 74176

== ENCOUNTER 2024-07-01 11:33 | Outpatient (CLI) | payer MEDICARE, SELFPAY ==
--- NOTE | 2024-07-01 11:30 | ECG_ITS ---
Test Date: 2024-07-01 12:16:08 Measurements Intervals [place] Rate: 81 P: 52 DE: 257 QRS: -63 QRSD: 113 T: -2 QT: 393 QTc: 457 Interpretive Statements SINUS RHYTHM WITH FIRST DEGREE AV BLOCK WITH OCCASIONAL VENTRICULAR PREMATURE COMPLEXES LOW QRS VOLTAGE IN PRECORDIAL LEADS [QRS DEFLECTION < 1.0 mV IN CHEST LEADS] LEFT ANTERIOR FASCICULAR BLOCK [QRS AXIS <= -45, QR IN I, RS IN II] POSSIBLE ANTERIOR MYOCARDIAL INFARCTION [30 ms Q WAVE IN V3/V4, OR R < 0.2 mV IN V4], PROBABLY OLD WARNING: DATA QUALITY MAY AFFECT INTERPRETATION No previous ECG available for comparison Electronically Signed On 07-01-2024 14:23:41 MALLET CUTTER by France Martin
--- OUTSIDE RECORDS SUMMARY | 2024-07-02 04:44 | XMS_ITS | Clinical Summary ---
Author Organization [facility] Address [address] [place] [address] Care Team Providers Care Roller Setter Name Role Phone Unavailable Primary Care Provider Unavailabl e Source Comments [facility],non-[facility] Affiliates and Associated Physician Practices is amultiple site organization consisting of ambulatory clinics and hospital sitesin [place], [place], [place] and [place]. This disclosure is being madepursuant to the Care Everywhere program and may not contain all information available regarding this patient. Last updated 18.[facility] [employer] Social History Tobacco Use Types Packs/Day Years Used Date Smoking Tobacco: Never Assessed Sex and Gender Information Value Date Recorded Sex Assigned at Not on file Gender Identity Not on file Sexual Orientation Not on file Plan of Treatment Health Maintenance Due Date Last Done Comments BONE DENSITY TESTING 1945 DTAP/TDAP/TD VACCINES (1 - Tdap) 12/28/1962 PNEUMOCOCCAL VACCINE 50+ (1 of 1 - PCV) 12/28/1993 ZOSTER VACCINE (1 of 2) 12/28/1993 Respiratory Syncytial Virus (RSV) Vaccine Pt: or over 60 yrs (1 - 1-dose 75+ series) 12/28/2018 COVID-19 VACCINE ( - 2023-2 5 season) 2024 INFLUENZA VACCINE (#1) 2024 DEPRESSION SCREENING 06/09/2024 MEDICARE AWV ? CALENDAR YEAR 2024 HEPATITIS B VACCINE Aged Out No longe r eligible based on patient's age to complete this topic HIB VACCINE Aged Out No longer eligi ble based on patient's age to complete this topic HPV VACCINE Aged Out No longer eligi ble based on patient's age to complete this topic MENINGOCOCCAL (Group B) VACCINE Aged Out No longer eligible based on patient's age to complete this topic MENINGOCOCCAL VACCINE Aged Out No aleksey gabriel eligible based on patient's age to complete this topic
--- OUTSIDE RECORDS SUMMARY | 2024-07-02 04:44 | XMS_ITS | Encounter Summary ---
Author Organization [facility] Address 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
--- OUTSIDE RECORDS SUMMARY | 2024-07-02 04:44 | XMS_ITS | Patient Health Summary ---
Author Organization [facility] Address [address] [place] [address] Care Team Providers Care Gummed Tape Press Operator Name Role Phone Unavailable Primary Care Provider Unavailabl e Note from [facility],non-owned Affiliates and Associated Physician Practices is amultiple site organization consisting of ambulatory clinics and hospital sitesin [place], [place], [place] and [place]. This disclosure is being madepursuant to the Care Everywhere program and may not contain all information available regarding this patient. Last updated 18.[facility] Social History Tobacco Use Types Packs/Day Years Used Date Smoking Tobacco: Never Assessed Sex and Gender Information Value Date Recorded Sex Assigned at Not on file Gender Identity Not on file Sexual Orientation Not on file Procedures * DERMPATH SLIDE CONSULT(Performed 11/26/2021) Results * DERMPATH SLIDE CONSULT (11/26/2021 12:00 AM CDT) Case Report Dermatopathology Report ? Case: [id number] ? Authorizing Provider: ??Blas Rojas MD ? Collected: ? 11/26/2021 12:00 AM ? Ordering Location: ? [facility] Care DermPath Lab ?Received: ?11/26/2021 02:55 PM ? Pathologist: ? Lizzy Travis MD ? Specimen: ?Slide(s), Left shoulder (OSC # [id number]) ? 2 8:01 AM [facility] DERMATOPATHOLOGY LABORATORY Final Diagnosis Specimen A. Slide(s), Left shoulder (OSC # [id number]): LENTIGINOUS MELANOCYTIC PROLIFERATION; PRESENT AT MARGIN (D48.5) (see microscopic description and comment) 2 8:01 AM [facility] DERMATOPATHOLOGY [facility]ORATORY Clinical History Materials received from: [facility] [address] [place] [address] Received from [facility], at the request of Dr Blas Rojas, are 6 slides labeled [id number]. Dysplastic (atypical) nevus. Check margins. Any additional sections, special stains or immunohistochemical stains performed by our laboratory will be kept here on file. 2 8:01 AM [facility] DERMATOPATHOLOGY LABORATORY Microscopic Description Specimen A. Slide(s), Left shoulder (OSC # [id number]): Sections show a lentiginous melanocytic proliferation. Scattered melanocytes show evidence of upward migration and there are focal areas of confluence. The melanocytes are highlighted by MART-1/Melan-A on blocks A1 and A2. The lesion is present at one tip and one lateral margin of the specimen in block A2. COMMENT: Based on the histological findings an early melanoma in-situ can not be ruled out. Therefore, a complete but conservative re-excision to assure complete removal of this lesion is recommended. 2 8:01 AM [facility] DERMATOPATHOLOGY LABORATORY Disclaimer An external and internal positive and negative controls are appropriate for the histochemical, immunohistochemical and immunofluorescence stain(s) in this case (if any), except where stated explicitly. The performance characteristics of the stain(s) cited in this report were developed and its performance characteristic determined by the Dermatopathology Laboratory at [facility], directed by Dr. Daija Travis. These tests need not be, and therefore are not, approved by the [place] Food and Drug Administration. The tests are used for clinical purposes. Billing Codes Specimen Charges Stain Charges 08390 1 84963 1 2 8:01 AM CDT DERMATOPATHOLOGY LABORATORY Embedded Images 2 8:01 AM CDT DERMATOPATHOLOGY LABORATORY Pathology/Cytolog y SLIDE / Unknown 11/26/2021 11/26/2021 2:55 PM CDT Blas Rojas MD LAB - PATHOLOGY/CYTO LOGY ORDERABLES DERMATOPATHOLOGY LABORATORY [facility] - Department of Dermatology [address], [address] Floor [address] [phone]
--- OUTSIDE RECORDS SUMMARY | 2024-07-02 04:44 | XMS_ITS | Encounter Summary ---
Author Organization [facility] Address [address] [place] [address] Care Team Providers Care Vp Research Name Role Phone Unavailable Primary Care Provider Unavailabl e Encounter Details Date Type Department Care Team (Late st Contact Info) Description 11/26/2021 Lab Requisition [facility] Care DermPath Lab [address] [place] [id number] Blas Rojas MD [address] [place] [address] Social History Tobacco Use Types Packs/Day Years Used Date Smoking Tobacco: Never Assessed Sex and Gender Information Value Date Recorded Sex Assigned at Not on file Gender Identity Not on file Sexual Orientation Not on file documented as of this encounter Plan of Treatment Not on file documented as of this encounter Procedures Procedure Name Priority Date/Time Associated Diagnosis Comments DERMPATH SLIDE CONSULT Routine 11/26/2021 12:00 AM CDT documented in this encounter Results * DERMPATH SLIDE CONSULT (11/26/2021 12:00 AM CDT) Case Report Dermatopathology Report ? Case: [id number] ? Authorizing Provider: ??Blas Rojas MD ? Collected: ? 11/26/2021 12:00 AM ? Ordering Location: ? [facility] ?Received: ?11/26/2021 02:55 PM ? Pathologist: ? Lizzy Travis MD ? Specimen: ?Slide(s), Left shoulder (OSC # [id number]) ? 2 8:01 AM [facility] DERMATOPATHOLOGY LABORATORY Final Diagnosis Specimen A. Slide(s), Left shoulder (OSC # [id number]): LENTIGINOUS MELANOCYTIC PROLIFERATION; PRESENT AT MARGIN (D48.5) (see microscopic description and comment) 2 8:01 AM [facility] DERMATOPATHOLOGY LABORATORY Clinical History Materials received from: [facility] [address] [place] [address] Received from [facility], at the request of Dr Blas Rojas, are 6 slides labeled [id number]. Dysplastic (atypical) nevus. Check margins. Any additional sections, special stains or immunohistochemical stains performed by our laboratory will be kept here on file. 2 8:01 AM [facility] DERMATOPATHOLOGY LABORATORY Microscopic Description Specimen A. Slide(s), Left shoulder (OSC # [id number]): Sections show a lentiginous melanocytic proliferation. Scattered [...] this lesion is recommended. 2 8:01 AM CDT DERMATOPATHOLOGY LABORATORY Disclaimer An external and internal positive and negative controls are appropriate for the histochemical, immunohistochemical and immunofluorescence stain(s) in this case (if any), except where stated explicitly. The performance characteristics of the stain(s) cited in this report were developed and its performance characteristic determined by the Dermatopathology Laboratory at [facility], directed by Dr. Daija Travis. These tests need not be, and therefore are not, approved by the [place] Food and Drug Administration. The tests are used for clinical purposes. Billing Codes Specimen Charges Stain Charges 93868 1 83888 1 2 8:01 AM CDT DERMATOPATHOLOGY LABORATORY Embedded Images 2 8:01 AM CDT DERMATOPATHOLOGY LABORATORY Pathology/Cytolog y SLIDE / Unknown 11/26/2021 11/26/2021 2:55 PM CDT Blas Rojas MD LAB - PATHOLOGY/CYTO LOGY ORDERABLES DERMATOPATHOLOGY LABORATORY [facility] - Department of Dermatology [address] [phone] documented in this encounter Visit Diagnoses Not on filedocumented in this encounter
--- OUTSIDE RECORDS SUMMARY | 2024-07-02 04:44 | XMS_ITS | Clinical Summary ---
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
--- OUTSIDE RECORDS SUMMARY | 2024-07-02 04:44 | XMS_ITS | Encounter Summary ---
Author Organization [facility] Address 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
--- OUTSIDE RECORDS SUMMARY | 2024-07-02 04:44 | XMS_ITS | Referral Summary ---
Author Organization [facility] Address [address] [place] [address] Care Team Providers Care Night Cleaner Name Role Phone Unavailable Primary Care Provider Unavailabl e Source Comments [facility] and Associated Physician Practices is amultiple site organization consisting of ambulatory clinics and hospital sitesin [place], [place], [place] and [place]. This disclosure is being madepursuant to the Care Everywhere program and may not contain all information available regarding this patient. Last updated 18.[facility] Social History Tobacco Use Types Packs/Day Years Used Date Smoking Tobacco: Never Assessed Sex and Gender Information Value Date Recorded Sex Assigned at Not on file Gender Identity Not on file Sexual Orientation Not on file Plan of Treatment Not on file
--- OUTSIDE RECORDS SUMMARY | 2024-07-02 04:44 | XMS_ITS | Encounter Summary ---
Author Organization [facility] Address 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
--- OUTSIDE RECORDS SUMMARY | 2024-07-02 04:44 | XMS_ITS | Data Portability ---
Author Organization LIZABETH Teixeira, Telehealth Address [address] [facility], [facility] [address] [place] [address] Care Team Providers Care Visitor Services Coordinator Name Role Phone SAURABH ROTH Primary Care Provider [phone] Assessment Encounter Date Assessment Date Assessment LastModified by Organization Details LastModified Time 12/11/2017 12/11/2017 onychomycosis, L great toenail rec vicks vaporub qd Seborrheic keratosis - diagnosis reviewed. Pt reassured. irritated and hx growing lesions bilateral infraocular refer to Dr Jean-Baptiste Angioma - diagnosis reviewed. Pt. reassured. 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 fbse in 1 yr [email or web address] Not available 12/14/2017 17:44:23 Plan of Treatment Reminders Order Date Submit Date Provider Last Modified By Organization Details Last Modified Time Details Appointments None record ed. Lab None record ed. Referral None record ed. Procedures None record ed. Surgeries None record ed. Imaging None record ed. Medication Orders None record ed. Patient TargetsNo targets recorded. Patient InstructionsNo instructions recorded. Reason for Referral None Reported. 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 R Misty /Chicoine Gina Gonzalez MD [address] [place] [address], [address] [facility], [place], [address], LIZABETH Gonzalez MD 8 00:02:59 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 Medical Equipment None Reported. Allergies Allergen ID Allergen Name Allergen Category Reaction Reaction Severity Criticality Documentation Date Start Date Code Code System Note Provider Name and Address Organization Details Recorded Time 2634 latex environme nt,medica tion Not available Not available Not available 12/11/2017 98903 91 RxNorm LIZABETH Trejo MD 8 12:16:05 2635 Product containin g 3-hydroxy -3-methyl glutaryl- coenzyme A reductase inhibitor (product) medicatio n Not available Not available Not available 12/11/2017 25671 009 SNOMED LIZABETH Trejo MD 8 12:16:17 3154 Lipitor medicatio n Not available Not available Not available 04/29/2018 07888 5 RxNorm Gina Gonzalez MD [address] [place] [address], [place] [address], [place], [address] 7, LIZABETH Gonzalez MD 8 00:03:34 Medications Name Sig Start Date Stop Date Status Note LastModified by Organization Details LastModified Time amoxicillin 500 mg capsule 12/11 completed Not Available Not Available Not Available hydrocodone 5 mg-acetaminop hen 325 mg tablet 12/11 completed Not Available Not Available Not Available atenolol 25 mg tablet active Not Available Not Available No t Available aspirin 81 mg tablet,delaye d release Take 1 tablet every day by oral route. active Not Available Not Available No t Available amlodipine 10 mg tablet Take 1 tablet every day by oral route. active Not Available Not Available No t Available triamterene 37.5 mg-hydrochlor othiazide 25 mg tablet active Not Available Not Available No t Available Pneumovax-23 25 mcg/0.5 mL injection syringe 12/11 completed Not Available Not Available Not Available chlorhexidine gluconate 0.12 % mouthwash 12/11 completed Not Available Not Available Not Available Fluzone High-Dose 0071-1193 (PF) 180 mcg/0.5 mL intramuscular syringe 12/11 completed Not Available Not Available Not Available Shingrix (PF) 50 mcg/0.5 mL intramuscular suspension, kit 12/11 completed Not Available Not Available Not Available Vitals None Recorded Social History Question Answer Notes LastModified by Organizat ion Details LastModified Time Tobacco Smoking Status Never Smoker Not Available [facility] 04/11/2020 03:23:58 What Is Your Level Of Alcohol Consumption? None [id number] Information not available 04/11/2020 What Was The Date Of Your Most Recent Tobacco Screening? 12/11/2017 [id number] Information not available 04/11/2020 Sun Exposure Minimal [email or web address] Information not available 12/11/2017 Do You Use Sunscreen Routinely? Yes [id number] Information not available 04/11/2020 Tanning Bed Exposure No [email or web address] Information not available 12/11/2017 Sex: Unknown Functional Status None recorded. Mental Status None recorded. Family History Nothing Reported. Medical History Condition Response Hyperthyroidism N Hypothyroidism N Pacemaker N Arthritis Y Cancer Y Stroke N HIV/AIDS N Defibrillator N Anemia N Diabetes N Bleeding Disorder N Asthma N Lupus N Psoriasis N Hepatitis N Heart Disease Y Hypertension N Gynecological HistoryNo gynecological history recorded. Obstetrics History GPAL:G 0 P 0 0 0 0 Past Encounters Encounter ID Performer Location Encounter Start Date Encounter Closed Date Diagnosis/Indication Diagnosis SNOMED-CT Code Diagnosis ICD10 Code Diagnosis Note [id number] Gina Gonzalez MD Main Office [address] [facility] [address] [place] [address] 12/11/2017 11:17:18 12/11/2017 12:41:41 Onychomycosis 466660390 B35.1 Senile hyperkeratosis 39 3490847 L82.1 History of malignant neoplasm of skin excluding melanoma 896177058 Z85.828 Senile angioma 8350795 I 78.1 Health Concerns Section Related Observation LastModified by Organization Detai ls LastModified Time None Recorded Concern Status LastModified by Organization Details LastModified Time None Recorded Advance Directives Directive None Recorded Payers Encounter Date Sequence Insurance Name Policy Number Policy Reagan Covered Member ID Reagan Member ID Guarantor Name 12/11/2017 1 [facility] [id number] Hue Raygoza [id number] Hue Raygoza Notes Date Note Type Note Provider Name and Address Organization Details Recorded Time 12/11/2017 text/html full body check bump on top of left earx not sureno symptoms-just feels strange left big toe nail is changingjust started getting pedicuresno symptoms pt having some back painsthese are chronic for her hx skin cancer-past surgery with Dr Awad melanoma L thumbnail years ago. no bleeding spots, changing moles, or sores that don't want to heal. Gina Gonzalez MD [address] [facility], [address], [place], [address], [facility] - Gina Gonzalez MD 12/14/2017 17:44:35 OBGyn Episode No OBEpisode recorded.
--- OUTSIDE RECORDS SUMMARY | 2024-07-02 04:46 | XMS_ITS | Referral Summary ---
Author Organization [facility] Address [address] [place] [address] Care Team Providers Care Prepleater Name Role Phone Gina Gonzalez MD Unavailable [phone] Brett De Santiago MD Unavailable [phone] Sherlyn Miramontes MD Unavailable [phone] Maria Dolores Mercedes MD Unavailable [phone] Kip Bryant MD Unavailable Damien Capps DO Primary Care Provider [phone] Allergies Active Allergy Reactions Criticality Noted Date Comments Atorvastatin Muscle pain Medium Latex Rash Medium Uhdnkjg-Ggz-Qoa Reductase Inhibitors Muscle pain Reaction: Myalgia, Medications aspirin 81 mg tablet Take 1 tablet (81 mg total) by mouth daily 9 Active triamterene-hydro CHLOROthiazide 37.5-25 mg per tabletIndications :Essential hypertension Take 1 tablet by mouth once daily 90 tablet 0 Active multivitamin capsule Take 1 capsule by mouth daily Active LUTEIN ORAL Take 25 mg by mouth daily Active ezetimibe (ZETIA) 10 mg tabletIndications :Encounter for screening Take 1 tablet (10 mg total) by mouth daily 30 tablet 11 0 Active amLODIPine (NORVASC) 10 mg tabletIndications :Essential hypertension Take 1 tablet (10 mg total) by mouth daily 90 tablet 1 0 Active gabapentin (NEURONTIN) 300 mg capsule Take 1 capsule (300 mg total) by mouth nightly as needed 2 Active losartan (COZAAR) 25 mg tablet Take 1 tablet (25 mg total) by mouth daily 3 Active krill oil 500 mg capsule Take by mouth Active Active Problems Problem Noted Date Diagnosed Date Shortness of breath 06/28/2022 Systolic murmur 06/28/2022 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 12/18/2017 Class 3 severe obesity due t o excess calories with serious comorbidity and body mass index (BMI) of 40.0 to 44.9 in adult 10/17/2017 Dystrophia unguium 03/18/2016 History of renal calculi 12/07/2015 Overview (09/19/2017): Description: November 2015, [place], [place] 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 Ksenia Bacon. History of hysterectomy 08/05/201212/07 Overview (09/13/2016): H/O: hysterectomy Atherosclerosis of coronary artery 08/10/2008 06/28/2022 Overview (09/19/2017): Description: [place] in 1986 (at age 41) Immunizations Name Administration Dates Next Due DTP 04/02/2018 Influenza, Trivalent, Adjuva nted, Intramuscular 04/02/2018 Influenza, Trivalent, High D ose, Split, Preservative Free, Intramuscular 02/27/2017,05/05/2015 Influenza, Trivalent, Preser vative Free, Intramuscular 03/09/2016,02/22/2013 Influenza, Unspecified 04/02/2018 Pneumococcal Conjugate, Unspecified 05/24/2016 Pneumococcal Polysaccharide PPV23 07/01/2017,06/2010 Tdap 01/05/2019(),04/02/2018,12/19/19 17 ZOSTER LIVE 08/19/2013 ZOSTER Recombinant 11/01/2017,07/21/2017 Social History Tobacco Use Types Packs/Day Years Used Date Smoking Tobacco: Never Smokeless Tobacco: Never Tobacco Cessation:Counseling Given: Not Answered Alcohol Use Standard Drinks/Week Comments No 0 (1 standard drink = 0.6 oz pur e alcohol) PHQ-2 Answer Date Recorded PHQ-2 Score 0 01/30/2019 Comments No Sex and Gender Information Value Date Recorded Sex Assigned at Not on file 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 Gender Identity Not on file Sexual Orientation Not on file Last Filed Vital Signs Vital Sign Reading Time Taken Comments Blood Pressure 130/84 01/27/2024 1:42 PM CDT Pulse 68 01/27/2024 1:42 PM CDT Temperature 36.7 ??C (98 ??F) 01/05/2019 6:42 PM CDT Respiratory Rate 18 01/05/2019 10:30 PM CDT Oxygen Saturation 96% 01/27/2024 1:42 PM CDT Inhaled Oxygen Concentration - - Weight 121.1 kg (267 lb) 01/27/2024 1:42 PM CDT Height 170.2 cm (5' 7 ) 01/27/2024 1:42 PM CDT Body Mass Index 41.82 01/27/2024 1:42 PM CDT Plan of Treatment Not on file Procedures Procedure Name Priority Date/Time Associated Diagnosis Comments DEXA SCAN Routine 09/22/2013 from Last 3 Months or Most Recently Relevant to Health Maintenance Results * DEXA SCAN (09/22/2013) SCRIBED DXA BMD -1.400 Anatomical Region Laterality Modality Other Historical Provider MD HEALTH MAINTENANCE Final Result from Last 3 Months or Most Recently Relevant to Health Maintenance Insurance [facility] MEDICARE MEDICARE SOLUTIONS MEDICARE [employer] MEDICARE SOLUTIONS [facility] MEDICARE Care Teams Prepleater Relationship Specialty Start Date End Date Damien Capps DO [facility] [place] [address] PCP - General Family Medicine 08/01/22 Gina Gonzalez MD [address] [facility] [address] [place] [address] Referring Physician Dermatology 12/18/17 Brett De Santiago MD [address] [place] [address] Consulting Physician Cardiology 12/18/17 Sherlyn Miramontes MD [address] [address] Consulting Physician Obstetrics and Gynecology 12/18/17 Maria Dolores Mercedes MD [address] [place] [address] Referring Physician Dermatology 12/18/17 Kip Bryant MD [address] [place] [address] Referring Physician Neurology 12/24/18
--- OUTSIDE RECORDS SUMMARY | 2024-07-02 04:46 | XMS_ITS ---
Author Organization 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 12/18/2017 Class 3 severe obesity due t o excess calories with serious comorbidity and body mass index (BMI) of 40.0 to 44.9 in adult 10/17/2017 Dystrophia unguium 03/18/2016 History of renal calculi 12/07/2015 Overview (09/19/2017): Description: November 2015, [place], [place] 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 Past Plans No past plan information found. Radiation Treatments * No radiation treatments are documented for this patient in [facility]. Treatments may have been administered in another system. 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 Ksenia Bacon. History of hysterectomy 08/05/201212/07 Overview (09/13/2016): H/O: hysterectomy Atherosclerosis of coronary artery 08/10/2008 06/28/2022 Overview (09/19/2017): Description: [place] in 1986 (at age 41)
--- OUTSIDE RECORDS SUMMARY | 2024-07-02 04:46 | XMS_ITS | Clinical Summary ---
Author Organization [facility] Address [address] [place] [address] Care Team Providers Care Assistant Corporation Counsel Name Role Phone Gina Gonzalez MD Unavailable [phone] Brett De Santiago MD Unavailable [phone] Sherlyn Miramontes MD Unavailable [phone] Maria Dolores Mercedes MD Unavailable [phone] Kip Bryant MD Unavailable Damien Capps DO Primary Care Provider [phone] Allergies Active Allergy Reactions Criticality Noted Date Comments Atorvastatin Muscle pain Medium Latex Rash Medium Xrnuynn-Suc-Orc Reductase Inhibitors Muscle pain Reaction: Myalgia, Medications [...] calculi 12/07/2015 Overview (09/19/2017): Description: November 2015, [place], [place] Squamous cell carcinoma in situ (SCCIS) [...] coronary artery 08/10/2008 06/28/2022 Overview (09/19/2017): Description: [place] in 1986 (at age 41) Immunizations Name Administration Dates Next Due DTP 04/02/2018 Influenza, Trivalent, Adjuva nted, Intramuscular 04/02/2018 Influenza, Trivalent, High D ose, Split, Preservative Free, Intramuscular 02/27/2017,05/05/2015 Influenza, Trivalent, Preser vative Free, Intramuscular 03/09/2016,02/22/2013 Influenza, Unspecified 04/02/2018 Pneumococcal Conjugate, Unspecified 05/24/2016 Pneumococcal Polysaccharide PPV23 07/01/2017,06/2010 Tdap 01/05/2019(),04/02/2018,12/19/19 17 ZOSTER LIVE 08/19/2013 ZOSTER Recombinant 11/01/2017,07/21/2017 Surgical History Surgery Date Site/Laterality Comments HYSTERECTOMY OOPHORECTOMY SALPINGECTOMY CARDIAC CATHETERIZATION Medical History Medical History Date Comments Menopause ovarian failure Hypertension Heart attack (HCC) Polio Melanoma (HCC) Dislocation of ulnohumeral joint Dysphonia History of dizziness History of malignant neoplasm of skin right nare, 2010 Hyperlipidemia Family History Medical History Relation Name Comments Valvular heart disease Brother Valvular heart disease Father No Known Problems Mother Hodgkin's lymphoma Mother's Brother Bone cancer Paternal Grandfather Leukemia Paternal Grandmother Breast cancer Neg Hx Colon cancer Neg Hx Heart disease Neg Hx Relation Name Status Comments Brother Father Mother Mother's Brother Paternal Grandfather Paternal Grandmother Social History Tobacco Use Types Packs/Day Years [...] on file 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 Gender Identity Not on file Sexual Orientation Not on file Obstetrics History Para Term AB IAB SAB Ectopic Multiple Livin g Live Births 6 2 Date Outcome GA Total Labor Labor/2nd/3rd Weight Sex Type Anes PTL May A1 A5 Name Clin Para Para Last Filed Vital Signs Vital Sign Reading [...] 01/27/2024 1:42 PM CDT Plan of Treatment Health Maintenance Due Date Last Done Comments Hepatitis B Screening 12/28/1963 Osteoporosis Screening-Bone Density Scan 09/23/2015 09/22/2013 Depression Screening 12/25/2019 12/24/2018, 12/19/19 18 Fall Risk Assessment 12/25/2019 12/24/2018, 12/19/19 18 Well Visit 65+ 12/25/2019 12/24/2018, 12/07, 12/04/2016 Influenza Vaccine (#1) 2024 8, 04/02/2018, 02/27/2017, Additional history exists DTaP/Tdap/Td Vaccine (4 - Td or Tdap) 04/02/2028 04/02/2018, 04/02/2018, 12/18/2016 Pneumococcal vaccine 65+ Completed 018, 05/24/2016, 06/09/2010 Zoster Vaccine Completed 11/01/2017, 07/10, 08/19/2013 Procedures Procedure Name Priority Date/Time Associated Diagnosis Comments DEXA SCAN Routine 09/22/2013 from Last 3 Months or Most Recently Relevant to Health Maintenance Results * DEXA SCAN (09/22/2013) SCRIBED DXA BMD -1.400 Anatomical Region Laterality Modality Other Historical Provider MD HEALTH MAINTENANCE Final Result from Last 3 Months or Most Recently Relevant to Health Maintenance [place] [id number] [employer] MEDICARE MEDICARE SOLUTIONS MEDICARE SOLUTIONS MEDICARE SOLUTIONS [facility] MEDICARE Address: [address] [address] [place] [address] [facility] MEDICARE Care Teams Assistant Corporation Counsel Relationship Specialty Start Date End Date Damien Capps DO [address] [place] [address] PCP - General Family Medicine 08/01/22 Gina Gonzalez MD [address] [facility] [address] [place] [address] Referring Physician Dermatology 12/18/17 Brett De Santiago MD [address] [facility] [address] [place] [address] Consulting Physician Cardiology 12/18/17 Sherlyn Miramontes MD [address] [facility] [address] [place] [address] Consulting Physician Obstetrics and Gynecology 12/18/17 Maria Dolores Mercedes MD [address] [place] [address] Referring Physician Dermatology 12/18/17 Kip Bryant MD [address] [place] [address] Referring Physician Neurology 12/24/18
== END 2024-07-01 11:34 | disposition home or self-care (01) ==
LOC: ANHSURGERY 11:48
PROVIDERS: Visit Provider Urology
DX: R94.31 Abnormal electrocardiogram [ECG] [EKG] (principal); N20.1 Calculus of ureter; E78.5 Hyperlipidemia, unspecified
CPT/HCPCS: 87086; 93005

== ENCOUNTER 2024-07-06 00:06 | Day surgery (SDC) | payer MEDICARE, SELFPAY ==
--- NOTE | 2024-06-30 10:08 | PC.NURSE ---
Report to the Outpatient Waiting Room, entrance under the green pavilion located off [facility], at time __11:30 am on date _07/06/24 . Planned Procedure Time: __1:30 pm .? Time changes happen often and if your time is changed the preop area will call you the afternoon before. - You and your visitor will be asked to self-screen and do not enter if you have any COVID symptoms. Please call surgeon if you need to reschedule. - A mask is optional within the hospital at this time. Patients may have clear liquids (water, carbonated beverages, clear teas, apple juice) until 3 hours prior to surgery( 10:30 am) with a maximum of 20 ounces. - No food from midnight until time of surgery and no smoking. This includes no chewing gum, candy or mints. Take only the following medications with a SIP of water on the morning of surgery: __AMLODIPINE, DO NOT STOP ANY OF YOUR OTHER PRESCRIPTION MEDICATIONS PRIOR TO SURGERY EXCEPT THE FOLLOWING Medications to discontinue per physician PATIENT STATES _HOLD ALL VITAMINS AND ASPIRIN AND IBUPROFEN PER DR HANKS__7 DAYS PRE OP LAST DOSE 06/28/24 Please no make-up, nail yakut, hairspray, perfume, deodorant, or body powder the day of surgery.? No jewelry (including any body piercings) or valuables the day of surgery, leave them at home.? Please take a shower or bath the night before, or the morning of, surgery with an antibacterial soap.? Wear comfortable, loose fitting clothing.? Children are encouraged to wear pajamas. - Jewelry must be removed prior to entering the operating room.? Rings and piercings that are not removed may be cut off. - The hospital will not accept responsibility for valuables.? - Please leave all valuables, including medications, at home the day of surgery. If you are going home after surgery, a licensed escort car driver must drive you home.? - NO public transportation without another adult if you receive anesthesia. - We recommend that an adult stay with you for 24 hours following discharge. - We also recommend that you do not drive, make important decision, drink alcoholic beverages, or take any drugs that were not prescribed by your health care provider for at least 24 hours after your discharge time. Follow any additional instructions given to you from your surgeon. Telephone instructions given to _patient and asked if any additional questions and then verbalized understanding. Patient advised to call surgeon office or pre surgery nurse liaison [phone] if any additional questions.
[2024-06-30 10:43] VITALS: BMI 39.2
--- NOTE | ~2024-07-06 | XR_ITS ---
EXAMINATION: XR retrograde pyelo w/stent LT DATE: 07/06/2024 11:29 INDICATION: Left renal stones TECHNIQUE: Fluoroscopic images from a left internal ureteral stent placement are submitted for review . 8 seconds of fluoroscopy time. FINDINGS: There is a left double-J internal ureteral stent projecting in expected position, with proximal stent at the level of the renal pelvis. IMPRESSION: 1. Left internal ureteral stent placement. Please refer to real-time procedural findings for detail s. Reviewed, dictated and finalized at location A. TION TECHNICIAN IMPRESSION: 1. Left internal ureteral stent placement. Please refer to real-time procedur al findings for details.
--- OUTSIDE RECORDS SUMMARY | 2024-07-06 00:09 | XMS_ITS | Referral Summary ---
Author Organization [facility] Address [address] [place] [address] Care Team Providers Care Capacitor Inspector Name Role Phone Gina Gonzalez MD Unavailable [phone] Brett De Santiago MD Unavailable [phone] Sherlyn Miramontes MD Unavailable [phone] Maria Dolores Mercedes MD Unavailable [phone] Kip Bryant MD Unavailable Damien Capps DO Primary Care Provider [phone] Allergies Active Allergy Reactions Criticality Noted Date Comments Atorvastatin Muscle pain Medium Latex Rash Medium Eorqewi-Ivo-Xsq Reductase Inhibitors Muscle pain Reaction: Myalgia, Medications [...] calculi 12/07/2015 Overview (09/19/2017): Description: November 2015, [place], [place] Squamous cell carcinoma in situ (SCCIS) [...] coronary artery 08/10/2008 06/28/2022 Overview (09/19/2017): Description: [place] in 1986 (at age 41) Immunizations Name [...] on file 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 Gender Identity Not on file Sexual Orientation [...] Most Recently Relevant to Health Maintenance Insurance [facility] MEDICARE MEDICARE SOLUTIONS MEDICARE [employer] MEDICARE SOLUTIONS [facility] MEDICARE Care Teams Capacitor Inspector Relationship Specialty Start Date End Date Damien Capps DO [facility] [place] [address] PCP - General Family Medicine 08/01/22 Gina Gonzalze MD [address] [facility] [address] [place] [address] Referring Physician Dermatology 12/18/17 Brett De Santiago MD [address] [place] [address] Consulting Physician Cardiology 12/18/17 Sherlyn Miramontes MD [address] [address] Consulting Physician Obstetrics and Gynecology 12/18/17 Maria Dolores Mercedes MD [address] [place] [address] Referring Physician Dermatology 12/18/17 Kip Bryant MD [address] [place] [address] Referring Physician Neurology 12/24/18
--- OUTSIDE RECORDS SUMMARY | 2024-07-06 00:09 | XMS_ITS | Encounter Summary ---
Author Organization [facility] Address 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
--- OUTSIDE RECORDS SUMMARY | 2024-07-06 00:09 | XMS_ITS | Clinical Summary ---
Author Organization [facility] Address [address] [place] [address] Care Team Providers Care It Applications Developer Name Role Phone Gina Gonzalez MD Unavailable [phone] Brett De Santiago MD Unavailable Sherlyn Miramontes MD Unavailable [phone] Maria Dolores Mercedes MD Unavailable [phone] Kip Bryant MD Unavailable Damien Capps DO Primary Care Provider [phone] Allergies Active Allergy Reactions Criticality Noted Date Comments Atorvastatin Muscle pain Medium Latex Rash Medium Qbrgyot-Smw-Knk Reductase Inhibitors Muscle pain Reaction: Myalgia, Medications [...] calculi 12/07/2015 Overview (09/19/2017): Description: November 2015, [place], [place] Squamous cell carcinoma in situ (SCCIS) [...] coronary artery 08/10/2008 06/28/2022 Overview (09/19/2017): Description: [place] in 1986 (at age 41) Immunizations Name [...] on file 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 Gender Identity Not on file Sexual Orientation [...] Relevant to Health Maintenance [place] [phone] [employer] MEDICARE MEDICARE SOLUTIONS MEDICARE SOLUTIONS MEDICARE SOLUTIONS [facility] MEDICARE Care Teams It Applications Developer Relationship Specialty Start Date End Date Damien Capps DO [address] [place] [address] PCP - General Family Medicine 08/01/22 Gina Gonzalez MD [address] [facility] [address] [place] [address] Referring Physician Dermatology 12/18/17 Brett De Santiago MD [address] [facility] [address] [place] [address] Consulting Physician Cardiology 12/18/17 Sherlyn Miramontes MD [address] [facility] [address] [place] [address] Consulting Physician Obstetrics and Gynecology 12/18/17 Maria Dolores Mercedes MD [address] [place] [address] Referring Physician Dermatology 12/18/17 Kip Bryant MD [address] [place] [address] Referring Physician Neurology 12/24/18
--- OUTSIDE RECORDS SUMMARY | 2024-07-06 00:09 | XMS_ITS | Encounter Summary ---
Author Organization [facility] Address [address] [place] [address] Care Team Providers Care Electric Motorman Name Role Phone Unavailable Primary Care Provider Unavailabl e Encounter Details Date Type Department Care Team (Late st Contact Info) Description 11/26/2021 Lab Requisition [facility] Care D[facility] Lab [address] [facility] ([place], [place]) [place] [phone] Blas Rojas MD [address] [place] [address] Social History Tobacco Use Types [...] CDT) Case Report Dermatopathology Report ? Case: [id number] ? Authorizing Provider: ??Blas Rojas MD ? Collected: ? 11/26/2021 12:00 AM ? Ordering Location: ? [facility] DermPath Lab ?Received: ?11/26/2021 02:55 PM ? Pathologist: ? Lizzy Travis MD ? Specimen: ?Slide(s), Left shoulder (OSC # [id number]) ? 2 8:01 AM [facility] DERMATOPATHOLOGY LABORATORY Final Diagnosis Specimen A. Slide(s), Left shoulder (OSC # [id number]): LENTIGINOUS MELANOCYTIC PROLIFERATION; PRESENT AT MARGIN (D48.5) (see microscopic description and comment) 2 8:01 AM [facility] DERMATOPATHOLOGY LABORATORY Clinical History Materials received from: [facility] Pathology [address] [place] [address] Received from [facility]ology, at the request of Dr Blas Rojas, are 6 slides labeled [id number]. Dysplastic (atypical) nevus. Check margins. Any additional sections, special stains or immunohistochemical stains performed by our laboratory will be kept here on file. 2 8:01 AM [facility] DERMATOPATHOLOGY LABORATORY Microscopic Description Specimen A. Slide(s), Left shoulder (OSC # [id number]): Sections show a lentiginous melanocytic proliferation. Scattered [...] characteristic determined by the Dermatopathology Laboratory at [facility], directed by Dr. Daija Travis. These tests need not be, and therefore are not, approved by the [place] Food and Drug Administration. The tests are used for clinical purposes. Billing Codes Specimen Charges Stain Charges 12733 1 00902 1 2 8:01 AM CDT DERMATOPATHOLOGY LABORATORY Embedded Images 2 8:01 AM CDT DERMATOPATHOLOGY LABORATORY Pathology/Cytolog y SLIDE / Unknown 11/26/2021 11/26/2021 2:55 PM CDT Blas Rojas MD LAB - PATHOLOGY/CYTO LOGY ORDERABLES DERMATOPATHOLOGY LABORATORY [facility] - Department of Dermatology [address], [address] Floor [address] [phone] documented in this encounter Visit Diagnoses Not on filedocumented in this encounter
--- OUTSIDE RECORDS SUMMARY | 2024-07-06 00:09 | XMS_ITS | Referral Summary ---
Author Organization [facility] Address [address] [place] [address] Care Team Providers Care Duplication Specialist Name Role Phone Unavailable Primary Care Provider Unavailabl e Source Comments [facility],non[facility] and Associated Physician Practices is amultiple site organization consisting of ambulatory clinics and hospital sitesin [place], [place], [place] and [place]. This disclosure is being madepursuant to the Care Everywhere program and may not contain all information available regarding this patient. Last updated 18.[facility] Social History Tobacco Use Types Packs/Day Years Used Date Smoking Tobacco: Never Assessed Sex and Gender Information Value Date Recorded Sex Assigned at Not on file Gender Identity Not on file Sexual Orientation Not on file Plan of Treatment Not on file
--- OUTSIDE RECORDS SUMMARY | 2024-07-06 00:09 | XMS_ITS | Encounter Summary ---
[facility] Address 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
--- OUTSIDE RECORDS SUMMARY | 2024-07-06 00:09 | XMS_ITS ---
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 Treatments may have been administered in another [...]
--- OUTSIDE RECORDS SUMMARY | 2024-07-06 00:09 | XMS_ITS | Encounter Summary ---
Author Organization [facility] Address 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
--- OUTSIDE RECORDS SUMMARY | 2024-07-06 00:09 | XMS_ITS | Data Portability ---
Author Organization [facility] Address 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 R Misty /Chicoine Gina Gonzalez MD [address] [place] [address], [address] [facility], [place], [address], LIZABETH Gonzalez MD 8 00:02:59 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 Medical Equipment None Reported. Allergies Allergen ID Allergen Name Allergen Category Reaction Reaction Severity Criticality Documentation Date Start Date Code Code System Note Provider Name and Address Organization Details Recorded Time 2634 latex environme nt,medica tion Not available Not available Not available 12/11/2017 43304 91 RxNorm LIZABETH Trejo MD 8 12:16:05 2635 Product containin g 3-hydroxy -3-methyl glutaryl- coenzyme A reductase inhibitor (product) medicatio n Not available Not available Not available 12/11/2017 04123 009 SNOMED LIZABETH Trejo MD 8 12:16:17 3154 Lipitor medicatio n Not available Not available Not available 04/29/2018 01932 5 RxNorm Gina Gonzalez MD [address] [place] [address], [place] [address], [place], [address], LIZABETH Gonzalez MD 8 00:03:34 Medications [...] Available Not Available Not Available Fluzone High-Dose 9261-9559 (PF) 180 mcg/0.5 mL intramuscular syringe 12/11 completed Not Available Not Available Not Available Shingrix (PF) 50 mcg/0.5 mL intramuscular suspension, kit 12/11 completed Not Available Not Available Not Available Vitals None Recorded Social History Question Answer Notes LastModified by Organizat ion Details LastModified Time Tobacco Smoking Status Never Smoker Not Available [facility] 04/11/2020 03:23:58 What Is Your Level Of Alcohol Consumption? None [id number] Information not available 04/11/2020 What Was The Date Of Your Most Recent Tobacco Screening? 12/11/2017 [id number] Information not available 04/11/2020 Sun Exposure Minimal Information not available 12/11/2017 Do You Use Sunscreen Routinely? Yes [id number] Information not available 04/11/2020 Tanning Bed Exposure No [email or web address] Information not available 12/11/2017 Sex: Unknown Functional Status None recorded. Mental Status None recorded. Family History Nothing Reported. Medical History Condition Response Diabetes N Bleeding Disorder N Arthritis Y Hyperthyroidism N Defibrillator N Cancer Y Stroke N Asthma N Hypothyroidism N Lupus N HIV/AIDS N Pacemaker N Psoriasis N Anemia N Hepatitis N Heart Disease Y Hypertension N Gynecological HistoryNo gynecological history recorded. Obstetrics History GPAL:G 0 P 0 0 0 0 Past Encounters Encounter ID Performer Location Encounter Start Date Encounter Closed Date Diagnosis/Indication Diagnosis SNOMED-CT Code Diagnosis ICD10 Code Diagnosis Note [id number] Gina Gonzalez MD Main Office [address] [facility] [address] [place] [address] 12/11/2017 11:17:18 12/11/2017 12:41:41 Onychomycosis 909886075 B35.1 Senile hyperkeratosis 39 9763410 L82.1 History of malignant neoplasm of skin excluding melanoma 909471911 Z85.828 Senile angioma 7892271 I 78.1 Health Concerns Section Related Observation LastModified by Organization Detai ls LastModified Time None Recorded Concern Status LastModified by Organization Details LastModified Time None Recorded Advance Directives Directive None Recorded Payers Encounter Date Sequence Insurance Name Policy Number Policy Reagan Covered Member ID Reagan Member ID Guarantor Name 12/11/2017 1 [facility] [id number] [address] [id number] Hue Raygoza Notes Date Note Type Note [...] don't want to heal. Gina Gonzalez MD [address], [address], [place], [address], [facility] - Gina Gonzalez MD 12/14/2017 17:44:35 OBGyn Episode No OBEpisode recorded.
--- OUTSIDE RECORDS SUMMARY | 2024-07-06 00:09 | XMS_ITS | Patient Health Summary ---
Author Organization [facility] Address [address] [place] [address] Care Team Providers Care Congressional District Aide Name Role Phone Unavailable Primary Care Provider Unavailabl e Note from [facility],non-owned Affiliates and Associated Physician Practices is amultiple site organization consisting of ambulatory clinics and hospital sitesin [place], [place], [place] and [place]. This disclosure is being madepursuant to the Care Everywhere program and may not contain all information available regarding this patient. Last updated 18.[facility] Social History Tobacco Use Types Packs/Day Years Used Date Smoking Tobacco: Never Assessed Sex and Gender Information Value Date Recorded Sex Assigned at Not on file Gender Identity Not on file Sexual Orientation Not on file Procedures * DERMPATH SLIDE CONSULT(Performed 11/26/2021) Results * DERMPATH SLIDE CONSULT (11/26/2021 12:00 AM CDT) Case Report Dermatopathology Report ? Case: [id number] ? Authorizing Provider: ??Blas Rojas MD ? Collected: ? 11/26/2021 12:00 AM ? Ordering Location: ? [facility] Care DermPath Lab ?Received: ?11/26/2021 02:55 PM ? Pathologist: ? Lizzy Travis MD ? Specimen: ?Slide(s), Left shoulder (OSC # [id number]) ? 2 8:01 AM [facility] DERMATOPATHOLOGY LABORATORY Final Diagnosis Specimen A. Slide(s), Left shoulder (OSC # [id number]): LENTIGINOUS MELANOCYTIC PROLIFERATION; PRESENT AT MARGIN (D48.5) (see microscopic description and comment) 2 8:01 AM [facility] DERMATOPATHOLOGY LABORATORY Clinical History Materials received from: [facility] Pathology [address] [place] [address] Received from [facility] Pathology, at the request of Dr lBas Rojas, are 6 slides labeled [id number]. Dysplastic (atypical) nevus. Check margins. Any additional sections, special stains or immunohistochemical stains performed by our laboratory will be kept here on file. 2 8:01 AM [facility] DERMATOPATHOLOGY LABORATORY Microscopic Description Specimen A. Slide(s), Left shoulder (OSC # [id number]): Sections show a lentiginous melanocytic proliferation. Scattered [...] this lesion is recommended. 2 8:01 AM [facility] DERMATOPATHOLOGY LABORATORY Disclaimer An external and internal positive and negative controls are appropriate for the histochemical, immunohistochemical and immunofluorescence stain(s) in this case (if any), except where stated explicitly. The performance characteristics of the stain(s) cited in this report were developed and its performance characteristic determined by the Dermatopathology Laboratory at [facility], directed by Dr. Daija Travis. These tests need not be, and therefore are not, approved by the [place] Food and Drug Administration. The tests are used for clinical purposes. Billing Codes Specimen Charges Stain Charges 15743 1 75133 1 2 8:01 AM CDT DERMATOPATHOLOGY LABORATORY Embedded Images 2 8:01 AM CDT DERMATOPATHOLOGY LABORATORY Pathology/Cytolog y SLIDE / Unknown 11/26/2021 11/26/2021 2:55 PM CDT Blas Rojas MD LAB - PATHOLOGY/CYTO LOGY ORDERABLES DERMATOPATHOLOGY LABORATORY [facility] - Department of Dermatology [address], [address] [phone]
--- OUTSIDE RECORDS SUMMARY | 2024-07-06 00:09 | XMS_ITS | Clinical Summary ---
Author Organization [facility] Address [address] [place] [address] Care Team Providers Care Steel Checker Name Role Phone Unavailable Primary Care Provider Unavailabl e Source Comments [facility],non-[facility] Affiliates and Associated Physician Practices is amultiple site organization consisting of ambulatory clinics and hospital sitesin [place], [place], [place] and [place]. This disclosure is being madepursuant to the Care Everywhere program and may not contain all information available regarding this patient. Last updated 18.[email or web address] [email or web address] Social History Tobacco Use Types Packs/Day Years [...]
--- OUTSIDE RECORDS SUMMARY | 2024-07-06 00:09 | XMS_ITS | Clinical Summary ---
Author Organization [facility] Address [address] Attn: Epic Prelude ADT LIZABETH ESPINOZA [address] Care Team Providers Care Camera Storage Clerk Name Role Phone Unavailable Primary Care Provider Unavailabl e Social History Tobacco Use Types Packs/Day Years Used Date Smoking Tobacco: Never Assessed Comments Unknown Sex and Gender Information Value Date Recorded Sex Assigned at Not on file Legal Sex Female 2:37 AM PIPE BUFFER Gender Identity Not on file Sexual Orientation [...]
--- NOTE | 2024-07-06 08:43 | WPDHPUPDATE1 ---
History and Physical Update Update Date/Time: 07/06/24 08:43 History and Physical has been reviewed, including an updated exam of the patient. There are NO changes in the patient's condition. Risks, benefits, and alternatives have been discussed and questions answered. Patient agrees to proceed with procedure.
--- NOTE | 2024-07-06 10:14 | P.PNAN_ITS ---
Anes - Initial Pre Proc Eval Procedure: Operation Date: 07/06/24 12:00 Proposed Procedures p Cystoscopy, Left Ureteroscopy, Left Retrograde Pyelogram, Left Stone Extraction, Left Stent Replacement, Possible Holmium Laser Procedure - William De La Paz MD Date/Time: 07/06/24 10:14 Surgeon: William De La Paz MD Pre Op Diagnosis: left ureteral stone Patient Data Age: 78 Gender: F Height: 1.7 m Weight: 113.45 kg Allergies Allergy/AdvReac Type Severity Reaction Status Date / Time latex Allergy Severe Swelling Verified 06/30/24 10:12 adhesive tape Allergy SWELLING/RE Verified 06/30/24 10:13 DNESS ATORVASTATIN CALCIUM Allergy Severe Muscle pain Uncoded 06/30/24 10:12 Home Medications ?Medication ?Instructions ?Recorded ?Confirmed ?Type aspirin 81 mg chewable tablet 81 mg PO DAILY 01/08/20 07/06/24 History omega-3 fatty acids 1,000 mg 1,000 mg PO DAILY 08/08/20 07/06/24 History capsule (Fish Oil Concentrate) amlodipine 10 mg tablet 10 mg PO DAILY #90 tabs 07/22/23 07/06/24 Rx losartan 25 mg tablet See Rx Instructions .Route 08/21/23 06/30/24 Rx .COMPLEX #90 tabs ondansetron 4 mg disintegrating 4 mg PO Q8H PRN nausea and 09/26/23 06/30/24 Rx tablet vomiting #30 tabs ezetimibe 10 mg tablet (Zetia) 10 mg PO DAILY #90 tabs 02/13/24 06/30/24 Rx triamterene 37.5 1 tablet PO DAILY #90 tabs 03/01/24 06/30/24 Rx mg-hydrochlorothiazide 25 mg tablet ibuprofen 600 mg tablet 600 mg PO TID PRN pain #30 tabs 05/18/24 07/06/24 Rx ondansetron 4 mg disintegrating 4 mg PO Q8H PRN nausea and 05/18/24 06/30/24 Rx tablet vomiting #10 tabs tamsulosin 0.4 mg capsule 0.4 mg PO DAILY #12 caps 05/18/24 06/30/24 Rx gabapentin 300 mg capsule See Rx Instructions .Route 06/03/24 06/30/24 Rx .COMPLEX #90 caps vitamins A,C,N-zikn-omydvr 2,148 2 tablet PO ONCE 06/30/24 07/06/24 History mcg-113 mg-45 mg-17.4 mg tablet (PreserVision AREDS) Patient hx anesthesia problems: none Family hx anesthesia problems: none Results Review: All pre-operative results and documents have been reviewed as part of the pre- operative evaluation. [facility] Past Medical History Medical History History of kidney stones Obese FEDE (obstructive sleep apnea) Hypertension Old UT (myocardial infarction) Arthritis Hyperlipidemia History of poliomyelitis she stated she had a mild case as a child and uses a walker. CAD (coronary artery disease) medically treated . Myocardial infarction 1986. No intervention was performed. Surgical History Surgical History H/O oral surgery History of removal of pigmented skin lesion History of extraction of renal calculus History of partial hysterectomy History of cardiac catheterization 1986 after myocardial infarction. No angioplasty or stent as the vessel was reported as hard to read. Family History Family History Mother Thyroid disease when she was 97. Father Valvular heart disease Sibling Valvular heart disease 2 brothers Social History Social History Social History: the patient is and resides with her in [place]. He is the durable power contracts attorney for healthcare. She desires to be a full code. 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 She never smoked used marijuana, tobacco or drug abuse. She has 3 children. Smoking status: Never smoker Second hand tobacco smoke exposure: No Alcohol intake: never Substance use: never Substance use type: does not use Do You Feel Safe in your Home?: Yes Lack of Transportation: No Lack of Food: Never True Current Housing: I Have Housing Concerned About Future Housing: No Difficulty Paying Gas/Electric Bills: No Difficulty Paying for Meds: No Currently Unemployed: No Education: Master's Degree or Higher Difficulty w/ Childcare or Family Care: No Living arrangements: with family Occupation/Education: retired Gender identity (if verbalized by the patient): Female Sexual Orientation (if Verbalized by the Patient): Straight or Heterosexual Spiritual care concerns: No Anes - Eval Final PreProcedure Day of Procedure 07/06/24 10:14 Patient weight: morbidly obese Heart: regular rate and rhythm Lungs: clear to auscultation Airway: Mallampati scale class II Neurological: alert and oriented Last oral intake: >/= 8 hours ASA classification: III Emergent: no Anesthetic plan: proceed Anesthesia type and monitoring: general LMA and standard monitoring Results Review: All pre-operative results and documents have been reviewed as part of the pre-o perative evaluation. Informed Consent: The patient's anesthetic plan and its attendant risks and benefits were discussed with the patient/family/POA. Questions were solicited and answers provided to the satisfaction of the patient/family/POA.
[2024-07-06 10:38] VITALS: BP 134/83; PULSE 75; RESP 16; TEMP 36.1; O2SAT 98
[2024-07-06] MEDS: ceFAZolin 2 GM/D5W 50 ML 2 GM/50 ML BAG IVPB (11:02)
[2024-07-06] MEDS: LIDOCAINE 2% GEL UROJET 10 ML PKG MUCOUS MEM (11:22)
--- NOTE | 2024-07-06 11:27 | W.PM.PROC2 ---
Procedure Note - Detailed Date of Procedure 07/06/24 Pre-op Diagnosis left ureteral stone Post-op Diagnosis Same Procedure Performed Cystoscopy, left retrograde, left ureteroscopy with stone extraction, left ureteral stent placement 4.8 Solomon Islander contour Surgeon William De La Paz MD Anesthesia General Description of Procedure Patient was taken the operative suite correctly identified. Once anesthesia was obtained patient was placed in dorsal lithotomy position and prepped and draped usual sterile fashion. Nineteen Solomon Islander scope was inserted the bladder. There were no tumors noted. The left ureteral orifice was cannulated with a guidewire. I dilated the orifice with an 8/10 dilator. Rigid ureteral scope was then inserted. The stone was visualized. Using escape basket was able to retrieve in its entirety. Reinspection of the ureter revealed no residual stone. Pyelogram was then performed to confirm placement of the stent. 4.8 [place] Islander contour stent was then placed with the proximal end coiled in the left renal pelvis and the distal end in the bladder. Bladder was drained. 2% viscous lidocaine was inserted into the urethra and patient is taken recovery stable condition. Patient will follow-up in a week's time for stent removal. She is to call fat appointment. This completes dictation. Please send a copy of op note to my office Estimated Blood Loss 0 Drains Yes Packing No Pathology Yes Complications No immediate complications Condition Stable Disposition PACU
[2024-07-06 11:30] VITALS: BP 137/67; PULSE 68; RESP 19; TEMP 36.6; O2SAT 100
[2024-07-06] MEDS: LACTATED RINGERS 1,000 ML 30 ML IV CONT (11:30)
[2024-07-06 11:45] VITALS: BP 131/78; PULSE 51; RESP 12; O2SAT 100
[2024-07-06 12:00] VITALS: BP 127/96; PULSE 52; RESP 12; O2SAT 98
[2024-07-06 12:14] VITALS: BP 151/107; PULSE 48
[2024-07-06 12:40] VITALS: BP 108/87; PULSE 51
== END 2024-07-06 13:05 | disposition home or self-care (01) ==
PROVIDERS: Visit Provider Urology
PROC: (CPT 52352; principal; 2024-07-06 12:00)
DX: N20.1 Calculus of ureter (principal); E66.01 Morbid (severe) obesity due to excess calories; Z68.41 Body mass index [BMI] 40.0-44.9, adult
CPT/HCPCS: 52352; 52332; 74420; 82365; 88300; C1726; C1758; C1769; C2617; J0690; J1100; J2405; J2704; J7120; Q9966

== ENCOUNTER 2024-12-28 10:08 | Outpatient (CLI) | payer MEDICARE, SELFPAY ==
--- NOTE | ~2024-12-28 | MM_ITS ---
EXAMINATION: MM screening jimenez BI w rober HISTORY: Screening TECHNIQUE: Craniocaudal and mediolateral oblique 3-D tomosynthesis images were obtained and synthetic 2-D images were generated. CAD analysis was submitted and interpreted. COMPARISON: Comparison to multiple prior studies sequentially, with oldest reviewed study dated 10/24. BREAST PARENCHYMAL COMPOSITION: There are scattered areas of fibroglandular density. FINDINGS: There is no evidence of suspicious mass, calcification, or architectural distortion to sug gest malignancy in either breast. IMPRESSION: 1. No mammographic evidence of malignancy. 2. Recommend routine screening mammography in one year. BI-RADS Category 1: Negative Reviewed, dictated and finalized at location B.
--- OUTSIDE RECORDS SUMMARY | 2024-12-28 10:13 | XMS_ITS | Encounter Summary ---
Author Organization [facility] Address [address] [place] [address] Care Team Providers Care Quill Cleaning Machine Operator Name Role Phone Unavailable Primary Care [...] on file Legal Sex Female 2:37 AM AFTERNOON BABYSITTER Gender Identity Not on file Sexual Orientation Not on file documented as of this encounter Plan of Treatment Not on file documented as of this encounter Visit Diagnoses Not on filedocumented in this encounter
--- OUTSIDE RECORDS SUMMARY | 2024-12-28 10:13 | XMS_ITS | Referral Summary ---
Author Organization [facility] Address [address] [place] [address] Care Team Providers Care Girls Tennis Coach Name Role Phone Gina Gonzalez MD Unavailable Brett De Santiago MD Unavailable [phone] Sherlyn Miramontes MD Unavailable Maria Dolores Mercedes MD Unavailable [phone] Kip Bryant MD Unavailable [phone] Damien Capps DO Primary Care Provider Encounters Date Type Department Care Team Description 11/30/2024 Telephone [facility] Cardiology [address] [facility] [address] [place] [address] Padilla Sahu MD from Last 3 Months Allergies Active Allergy Reactions Criticality Noted Date Comments Atorvastatin Muscle pain Medium Latex Rash Medium Yhigwls-Teg-Wzt Reductase Inhibitors Muscle pain Reaction: Myalgia, Medications [...] calculi 12/07/2015 Overview (09/19/2017): Description: November 2015, [place], [place] Squamous cell carcinoma in situ (SCCIS) [...] coronary artery 08/10/2008 06/28/2022 Overview (09/19/2017): Description: [place] in 1986 (at age 41) Immunizations Immunization Administration Dates Next Due DTP 04/02/2018 Influenza, [...] on file Legal Sex Female 2:48 AM CONTRACT PARALEGAL Gender Identity Not on file Sexual Orientation Not on file Last Filed Vital Signs Vital Sign Reading Time Taken Comments Blood Pressure 130/84 01/27/2024 1:42 PM CDT Pulse 68 01/27/2024 1:42 PM CDT Temperature 36.7 C (98 F) 01/05/2019 6:42 PM CDT Respiratory Rate 18 01/05/2019 10:30 PM CDT Oxygen Saturation 96% 01/27/2024 1:42 PM CDT Inhaled Oxygen Concentration - - Weight 121.1 kg (267 lb) 01/27/2024 1:42 PM CDT Height 170.2 cm (5' 7) 01/27/2024 1:42 PM CDT Body Mass Index 41.82 01/27/2024 1:42 PM CDT Plan of Treatment Not on file Procedures Procedure Name Priority Date/Time Associated Diagnosis Comments DEXA SCAN Routine 09/22/2013 from Last 3 Months or Most Recently Relevant to Health Maintenance Results * DEXA SCAN (09/22/2013) SCRIBED DXA BMD -1.400 Anatomical Region Laterality Modality Other us Historical Provider HEALTH MAINTENANCE Final Result from Last 3 Months or Most Recently Relevant to Health Maintenance Insurance [facility] MEDICARE [facility] MEDICARE ADVANTAGE [facility] MEDICARE ADVANTAGE U[employer] MEDICARE ADVANTAGE AET[employer] MEDICARE Care Teams Girls Tennis Coach Relationship Specialty Start Date End Date Damien Capps DO [facility] [place] [address] PCP - General Family Medicine 08/01/22 Gina Gonzalez MD [address] [address] Referring Physician Dermatology 12/18/17 Brett De Santiago MD [address] [facility] [address] [place] [address] Consulting Physician Cardiology 12/18/17 Shelryn Miramontes MD [address] [facility] [address] [place] [address] Consulting Physician Obstetrics and Gynecology 12/18/17 Maria Dolores Mercedes MD [address] [place], [place] [address] Referring Physician Dermatology 12/18/17 Kip Bryant MD [address] [place] [address] Referring Physician Neurology 12/24/18
--- OUTSIDE RECORDS SUMMARY | 2024-12-28 10:13 | XMS_ITS | Encounter Summary ---
Author Organization [facility] Address [address] [place] [address] Care Team Providers Care Stitch Burnisher Name Role Phone Unavailable Primary Care Provider [...] on file Legal Sex Female 2:37 AM FIRER DIESEL LOCOMOTIVE Gender Identity Not on file Sexual Orientation Not on file documented as of this encounter Plan of Treatment Not on file documented as of this encounter Visit Diagnoses Not on filedocumented in this encounter
--- OUTSIDE RECORDS SUMMARY | 2024-12-28 10:13 | XMS_ITS | Clinical Summary ---
Author Organization [facility] Address [address] [place] [address] Care Team Providers Care Soil Expert Name Role Phone Gina Gonzalez MD Unavailable [phone] Brett De Santiago MD Unavailable [phone] Sherlyn Miramontes MD Unavailable [phone] Maria Dolores Mercedes MD Unavailable [phone] Kip Bryant MD Unavailable [phone] Damien Capps DO Primary Care Provider [phone] Allergies Active Allergy Reactions Criticality Noted Date Comments Atorvastatin Muscle pain Medium Latex Rash Medium Pwfwvgy-Sgg-Btz Reductase Inhibitors Muscle pain Reaction: Myalgia, Medications [...] calculi 12/07/2015 Overview (09/19/2017): Description: November 2015, [place], [place] Squamous cell carcinoma in situ (SCCIS) [...] coronary artery 08/10/2008 06/28/2022 Overview (09/19/2017): Description: [place] in 1988 (at age 41) Encounters Date Type Department Care Team Description 11/30/2024 Telephone [facility] Cardiology [address] [place] [address] Padilla Sahu MD from Last 3 Months Immunizations Immunization Administration Dates Next Due DTP [...] on file Legal Sex Female 2:48 AM HOUSE WRECKER Gender Identity Not on file Sexual Orientation [...] Well Visit 65+ 12/25/2019 12/24/2018, 12/07, 12/04/2016 DTaP/Tdap/Td Vaccine (4 - Td or Tdap) 04/02/2028 04/02/2018, 04/02/2018, 12/18/2016 Pneumococcal vaccine 65+ Completed 018, 05/24/2016, 06/09/2010 Zoster Vaccine Completed 11/01/2017, 07/10, 08/19/2013 Influenza Vaccine Completed 03/12/2024, , 04/02/2018, Additional history exists Procedures Procedure Name Priority Date/Time Associated Diagnosis Comments DEXA SCAN Routine 09/22/2013 from Last 3 Months or Most Recently Relevant to Health Maintenance Results * DEXA SCAN (09/22/2013) SCRIBED DXA BMD -1.400 Anatomical Region Laterality Modality Other us Historical Provider MD HEALTH MAINTENANCE Final Result from Last 3 Months or Most Recently Relevant to Health Maintenance Insurance [employer] MEDICARE [facility] MEDICARE ADVANTAGE [facility] Address: [address] [address] [place] [address] [facility] MEDICARE ADVANTAGE [facility] Address: [address] [address] [place] [address] UHC MEDICARE ADVANTAGE [facility] Address: [address] [address] [place] [address] [facility] MEDIC[facility] Care Teams Soil Expert Relationship Specialty Start Date End Date Damien Capps DO [address] [place] [address] PCP - General Family Medicine 08/01/22 Gina Gonzalez MD [address] [facility] [address] [place] [address] Referring Physician Dermatology 12/18/17 Brett De Santiago MD [address] [facility] [address] [place] [address] Consulting Physician Cardiology 12/18/17 Sherlyn Miramontes MD [address] [facility] [address] [place] [address] Consulting Physician Obstetrics and Gynecology 12/18/17 Maria Dolores Mercedes MD [address] [place] [address] Referring Physician Dermatology 12/18/17 Kip Bryant MD [address] [place] [address] Referring Physician Neurology 12/24/18
--- OUTSIDE RECORDS SUMMARY | 2024-12-28 10:13 | XMS_ITS ---
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 12/18/2017 Class 3 severe obesity due t o excess calories with serious comorbidity and body mass index (BMI) of 40.0 to 44.9 in adult 10/17/2017 Dystrophia unguium 03/18/2016 History of renal calculi 12/07/2015 Overview (09/19/2017): Description: November 2015, [place], [place] 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 Past Treatment and Therapy Plans No past plan information found. 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 Ksenia Bacon. History of hysterectomy 08/05/201212/07 Overview (09/13/2016): H/O: hysterectomy Atherosclerosis of coronary artery 08/10/2008 06/28/2022 Overview (09/19/2017): Description: [place] in 1986 (at age 41)
--- OUTSIDE RECORDS SUMMARY | 2024-12-28 10:13 | XMS_ITS | Data Portability ---
Author Organization [facility] Address [address] [facility], [facility] [address] [place] [address] Care Team Providers Care Roto Gravure Press Operator Name Role Phone SAURABH ROTH Primary Care Provider [phone] Assessment Encounter Date Assessment Date Assessment LastModified [...] Recorded Time Malignan t neoplasm of skin 013625186 Completed 201704/28/2018 Gina Gonzalez MD [address] [facility], [address], [place], [address], LIZABETH Gonzalez MD 8 00:03:11 Actinic keratosi s 219822266 Active 2017 Gina Gonzalez MD [address] [facility], [address], [place], [address], LIZABETH Gonzalez MD 8 12:26:38 Basal cell carcinom a of skin 829816029 Active 2017 R ala-Daren /Chicoine Gina Gonzalez MD [address] [place] [address], [place] [address], [place], [address], LIZABETH Gonzalez MD 8 00:02:59 Squamous cell carcinom a in situ of skin 045576284 Active 2017 2014 R handStacy t Gina Gonzalez MD [address] [place] [address], [address], [place], [address], LIZABETH Gonzalez MD 8 00:03:20 Melanocy tic neoplasm 677717282 Active 2018 L thumbnail -jcn melanocyt ic prolif/ru dimentary MISJazmin Gonzalez MD [address] [place] [address], [place] [address], [place], [address], LIZABETH Gonzalez MD 9 23:23:13 Problem Notes None recorded. Medical Equipment None Reported. Allergies Allergen ID Allergen Name Allergen Category Reaction Reaction Severity Criticality Documentation Date Start Date Code Code System Note Provider Name and Address Organization Details Recorded Time 2634 latex environme nt,medica tion Not available Not available Not available 12/11/2017 98708 91 RxNorm LIZABETH Trejo MD 8 12:16:05 2635 Product containin g 3-hydroxy -3-methyl glutaryl- coenzyme A reductase inhibitor (product) medicatio n Not available Not available Not available 12/11/2017 83638 009 SNOMED LIZABETH Trejo MD 8 12:16:17 3154 Lipitor medicatio n Not available Not available Not available 04/29/2018 76581 5 RxNorm Gina Gonzalez MD [address] [place] [address], [address], [place], [address] , LIZABETH Gonzalez MD 8 00:03:34 Medications Name [...] Available Not Available Not Available Fluzone High-Dose 4264-1822 (PF) 180 mcg/0.5 mL intramuscular syringe 12/11 completed Not Available Not Available Not Available Shingrix (PF) 50 mcg/0.5 mL intramuscular suspension, kit 12/11 completed Not Available Not Available Not Available Vitals None Recorded Social History Question Answer Notes LastModified by Organizat ion Details LastModified Time Tobacco Smoking Status Never Smoker Not Available [facility] 04/11/2020 03:23:58 What Was The Date Of Your Most Recent Tobacco Screening? 12/11/2017 [id number] Information not available 04/11/2020 Sun Exposure Minimal [email or web address] Information not available 12/11/2017 Do You Use Sunscreen Routinely? Yes [id number] Information not available 04/11/2020 Tanning Bed Exposure No [email or web address] Information not available 12/11/2017 Sex: Unknown Functional Status Question Answer Note LastModified by Organization D etails LastModified Time What is your level of alcohol consumption? None [id number] Information not available 04/11/2020 Mental Status None recorded. Family History Nothing Reported. Medical History Condition Response Diabetes N Bleeding Disorder N Arthritis Y Hyperthyroidism N Defibrillator N Cancer Y Stroke N Asthma N Hypothyroidism N Lupus N HIV/AIDS N Pacemaker N Anemia N Psoriasis N Hepatitis N Heart Disease Y Hypertension N Gynecological HistoryNo gynecological history recorded. Obstetrics History GPAL:G 0 P 0 0 0 0 Past Encounters Encounter ID Performer Location Encounter Start Date Encounter Closed Date Diagnosis/Indication Diagnosis SNOMED-CT Code Diagnosis ICD10 Code Diagnosis Note [id number] Gina Gonzalez MD Main Office [address] [facility] [address] [place] [address] 12/11/2017 11:17:18 12/11/2017 12:41:41 Onychomycosis 915937786 B35.1 Senile hyperkeratosis 39 2574924 L82.1 History of malignant neoplasm of skin excluding melanoma 924762443 Z85.828 Senile angioma 7626536 I 78.1 Health Concerns Section Related Observation LastModified by Organization Detai ls LastModified Time None Recorded Concern Status LastModified by Organization Details LastModified Time None Recorded Advance Directives Directive None Recorded Payers Insurance Date Sequence Insurance Name Policy Number Policy Reagan Covered Member ID Reagan Member ID Guarantor Name 12/31/2017 1 [facility] [id number] Hue Raygoza [id number] Hue Raygoza Notes Date Note Type Note [...] don't want to heal. Gina Gonzalez MD [address] [facility], [address], [place], [address], [facility] Gian Gonzalez MD 12/14/2017 17:44:35 OBGyn Episode No OBEpisode recorded.
--- OUTSIDE RECORDS SUMMARY | 2024-12-28 10:13 | XMS_ITS | Encounter Summary ---
Author Organization [facility] Address [address] [address] Care Team Providers Care Wild Life Manager Name Role Phone Unavailable Primary Care Provider Unavailabl e Encounter Details Date Type Department Care Team (Late st Contact Info) Description 11/26/2021 Lab Requisition [facility] DermPath Lab [address] [place] [address] Blas Rojas MD [address] [place] [address] Social History Tobacco Use Types Packs/Day Years Used Date Smoking Tobacco: Never Assessed Comments Unknown Sex and Gender Information Value Date Recorded Sex Assigned at Not on file Legal 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 Gender Identity Not on file Sexual Orientation Not on file documented as of this encounter Plan of Treatment Not on file documented as of this encounter Procedures Procedure Name Priority Date/Time Associated Diagnosis Comments DERMPATH SLIDE CONSULT Routine 11/26/2021 12:00 AM CDT documented in this encounter Results * DERMPATH SLIDE CONSULT (11/26/2021 12:00 AM CDT) Case Report Dermatopathology Report Case: [id number] Authorizing Provider: Blas Rojas MD Collected: 11/26/2021 12:00 AM Ordering Location: [facility] DermPath Lab Received: 11/26/2021 02:55 PM Pathologist: Lizzy Travis MD Specimen: Slide(s), Left shoulder (OSC # [id number]) 8:01 AM [facility] Final Diagnosis Specimen A. Slide(s), Left shoulder (OSC # [id number]): LENTIGINOUS MELANOCYTIC PROLIFERATION; PRESENT AT MARGIN (D48.5) (see microscopic description and comment) 2 8:01 AM [facility] at 0801 T Clinical History Materials received from: [facility] [address] [place] [address] Received from [facility], at the request of Dr Blas Rojas, are 6 slides labeled [id number]. Dysplastic (atypical) nevus. Check margins. Any additional sections, special stains or immunohistochemical stains performed by our laboratory will be kept here on file. 2 8:01 AM [facility] Microscopic Description Specimen A. Slide(s), Left shoulder (OSC # [id number]): Sections show a lentiginous melanocytic proliferation. Scattered [...] 2 8:01 AM [facility] Disclaimer An external and internal positive and negative controls are appropriate for the histochemical, immunohistochemical and immunofluorescence stain(s) in this case (if any), except where stated explicitly. The performance characteristics of the stain(s) cited in this report were developed and its performance characteristic determined by the Dermatopathology Laboratory at [facility], directed by Dr. Daija Travis. These tests need not be, and therefore are not, approved by the [place] Food and Drug Administration. The tests are used for clinical purposes. Billing Codes Specimen Charges Stain Charges 95589 1 11689 1 2 8:01 AM [facility] Embedded Images 2 8:01 AM [facility] Pathology/Cytolog y SLIDE / Unknown 11/26/2021 11/26/2021 2:55 PM CDT us Blas Rojas MD LAB - PATHOLOGY/CYTOLOGY [facility]ERE[facility] Final Result DERMATOPATHOLOGY LABORATORY [facility] - Department of Dermatology [address], [address] [phone] documented in this encounter Visit Diagnoses Not on filedocumented in this encounter
--- OUTSIDE RECORDS SUMMARY | 2024-12-28 10:13 | XMS_ITS | Clinical Summary ---
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
--- OUTSIDE RECORDS SUMMARY | 2024-12-28 10:13 | XMS_ITS | Encounter Summary ---
Author Organization [facility] Address 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
--- OUTSIDE RECORDS SUMMARY | 2024-12-28 10:13 | XMS_ITS | Clinical Summary ---
Author Organization [facility] Address [address] [place] [address] Care Team Providers Care Wood Cut Engraver Name Role Phone Unavailable Primary Care Provider Unavailabl e Source Comments [facility],non-[facility] and Associated Physician Practices is amultiple site organization consisting of ambulatory clinics and hospital sitesin [place], [place], [place] and [place]. This disclosure is being madepursuant to the Care Everywhere program and may not contain all information available regarding this patient. 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 Gender Identity Not on file Sexual Orientation [...] VACCINE ( - 2023-2 5 season) 2024 DEPRESSION SCREENING 06/09/2024 INFLUENZA VACCINE (#1) 2025 HEPATITIS B VACCINE Aged Out No longe r eligible based on patient's age to complete this topic HIB VACCINE Aged Out No longer eligi ble based on patient's age to complete this topic HPV VACCINE Aged Out No longer eligi ble based on patient's age to complete this topic MENINGOCOCCAL (Group B) VACC INE SHARED DECISION-MAKING Aged Out No longer eligibl e based on patient's age to complete this topic MENINGOCOCCAL GROUPS A/C/Y/W VACCINE Aged Out No longer eligible b ased on patient's age to complete this topic Insurance [facility] MEDICARE ADV [facility] MEDICARE ADV
== END 2024-12-28 10:09 | disposition home or self-care (01) ==
PROVIDERS: Visit Provider Family Medicine
DX: Z12.31 Encounter for screening mammogram for malignant neoplasm of breast (principal)
CPT/HCPCS: 77063; 77067